=== PATIENT | male | born 1945 | race Caucasian/White ===

== ENCOUNTER 2017-02-01 13:05 | Emergency (ER) | payer OTHER ==
--- NOTE | 2017-02-01 13:17 | PROVIDER DOCUMENTATION ---
HPI-Syncope/Dizziness - General Source: patient, EMS Unable to obtain history due to:: other (Pt is unreliable historian due to his mental condition. He lives in a assisted.) - History of Present Illness-Syncope/Dizzy If witnessed syncope, by whom?: assisted staff Onset/Duration: reports: abrupt, just prior to arrival Timing: reports: resolved prior to arrival Position/Activity at time of episode: reports: standing Symptoms prior to episode: reports: unknown Context: reports: felt faint, almost passed out Loss of Consciousness: no loss of consciousness Location of injury. (If syncope resulted in an injury.): reports: none Current Symptoms: reports: nausea <Maranda Salmeron - Last Filed: 02/01/17 16:17> <Jose Gage - Last Filed: 02/01/17 16:22> - General Chief Complaint: Near Syncope Stated Complaint: NEAR SYNCOPE Time Seen by Provider: 02/01/17 13:05 Allergies/Adverse Reactions: Patient Allergies Allergy/AdvReac Type Severity Reaction Status Date / Time No Known Allergies Allergy Verified 01/18/16 08:05 Home Medications: Home Medication List Medication Instructions Recorded Confirmed Last Taken Type ATORVAstatin [Lipitor] 20 mg PO DAILY 01/18/16 09/25/16 01/18/16 06:00 History Amlodipine Besylate 10 mg PO DAILY 01/18/16 09/25/16 01/18/16 06:00 History Aspirin EC 81 mg PO DAILY 01/18/16 09/25/16 01/18/16 06:00 History Atenolol 50 mg PO DAILY 01/18/16 09/25/16 01/18/16 06:00 History Carbidopa/Levodopa [Carbidopa-Levo 1 each PO Q6H 01/18/16 09/25/16 01/18/16 06: 00 History 25-100 mg Odt] Cholecalciferol (Vitamin D3) 1,000 unit PO DAILY 01/18/16 09/25/16 01/18/16 06: 00 History [Vitamin D] Cyanocobalamin (Vitamin B-12) 1,000 mcg PO DAILY 01/18/16 09/25/16 01/18/16 06: 00 History [Vitamin B-12] Docusate Sodium [Dok] 100 mg PO BID 01/18/16 09/25/16 01/18/16 06:00 History Lacosamide [Vimpat] 150 mg PO BID 01/18/16 09/25/16 01/18/16 06:00 History Memantine HCl [Namenda] 5 mg PO BID 01/18/16 09/25/16 01/18/16 06:00 History Metformin HCl 850 mg PO BID 01/18/16 09/25/16 01/18/16 06:00 History Oxcarbazepine 300 mg PO BID 01/18/16 09/25/16 01/18/16 06:00 History Pantoprazole Sodium 40 mg PO DAILY 01/18/16 09/25/16 01/18/16 06:00 History Quetiapine [Seroquel] 25 mg PO QAM 01/18/16 09/25/16 01/18/16 06:00 History Quetiapine [Seroquel] 200 mg PO BID 01/18/16 09/25/16 01/18/16 06:00 History Spironolactone 25 mg PO DAILY 01/18/16 09/25/16 01/18/16 06:00 History Tamsulosin HCl 0.4 mg PO DAILY 09/25/16 09/25/16 Unknown History Lactulose 30 ml PO DAILY #30 ml 10/03/16 Unknown Rx Levofloxacin [Levaquin] 500 mg PO DAILY #7 tablet 10/03/16 Unknown Rx Polyethylene Glycol 3350 [Miralax] 17 gm PO DAILY #30 powd.pack 10/03/16 Unknown Rx - History of Present Illness-Syncope/Dizzy Nature of Presenting Problem: 72 yo WM is brought to ED by EMS following a near-syncopal episode in the shower at his assisted just prior to arrival. Pt reportedly got into the shower all right, but then slumped over with no LOC. He hit his head on the wall , was caught, and then moved to the toilet. Pt was reportedly hypotensive at that time. Upon arrival to ED, pt's BP was normal. Pt is unreliable historian due to his schizophrenia. He is able to respond to questions and commands, though he does not appropriately answer every question. It is unknown if this is a deviation from pt's baseline. (Maranda Salmeron) Review of Systems - Adult - REVIEW OF SYSTEMS - ADULT ROS:: limited per condition (Pt inconsistently responds to questions regarding pain, tenderness, and other symptoms.) Constitutional: reports: no symptoms reported. denies: chills, fever Eyes: reports: no symptoms reported. denies: decreased vision, blurred vision Ears, Nose, Mouth & Throat: reports: no symptoms reported. denies: ear discharge, sinus problem Cardiovascular: reports: no symptoms reported. denies: chest pain, heart murmur Respiratory: reports: no symptoms reported. denies: cough, wheezing Gastrointestinal: reports: nausea Genitourinary: reports: no symptoms reported. denies: dysuria, discharge Musculoskeletal: reports: no symptoms reported. denies: bone pain, back pain Integumentary: reports: no symptoms reported. denies: hives, itching Neurological: reports: other (near syncope) Psychiatric: reports: no symptoms reported. denies: anxiety, depression Endocrine: reports: no symptoms reported. denies: cold intolerance, heat intolerance Hematologic/Lymphatic: reports: no symptoms reported. denies: blood clots, low blood count Allergic/Immunologic: reports: no symptoms reported. denies: allergic reactions , allergic rhinitis All Other Systems: Reviewed and Negative <Maranda Salmeron - Last Filed: 02/01/17 16:17> Past History - Adult - PAST MEDICAL HISTORY-ADULT Review of Records: reports: Old Records Reviewed, Nursing Assessment Review, Medications Reviewed - IMMUNIZATION STATUS Childhood Immunizations: See Nurse Assessment Flu Vaccine: See Nurse Assessment <Maranda Salmeron - Last Filed: 02/01/17 16:17> Physical Exam-General - PHYSICAL EXAM-ADULT Exam Limited by: Pt is unreliable historian Initial Vital Signs Reviewed: Yes - CONSTITUTIONAL General Appearance: mild distress, slow to respond - HEAD, EARS, NOSE, MOUTH & THROAT HENMT: normocephalic/atraumatic, moist mucous membranes - NECK Neck: non-tender, full range of motion, supple - RESPIRATORY Respiratory: lungs clear, normal breath sounds - CARDIOVASCULAR Cardiovascular: normal peripheral pulses, regular rate, rhythm - GASTROINTESTINAL (ABDOMEN) Abdominal Exam: normal bowel sounds, soft, other (Pt responds to question of tenderness inconsistently, sometimes saying yes, sometimes saying no for the same areas. Pt does not exhibit other signs of tenderness and pain, such as reflexly jumping or pulling away on palpation.) - LYMPHATIC Lymphatic: no adenopathy - MUSCULOSKELETAL Back Exam: normal inspection Extremity: non-tender - SKIN Integumentary: normal color, normal turgor, warm/dry - NEUROLOGIC Neurologic: grossly normal - PSYCHIATRIC Psych/Mental Status: other (oriented x 2. Pt has hx of schizophrenia. he responds to questions, though not always appropriately.) <Maranda Salmeron - Last Filed: 02/01/17 16:17> Progress - EKG 1 Time of EKG reading by physician:: 13:13 EKG Read and Signed by:: Jose Gage EKG Interpretation (*Must complete 3 of following elements*): Normal Rate: 69 Rhythm: sinus [place]: normal QRS: normal [place] Interval: normal ST Wave: normal 2 Time of EKG reading by physician:: 15:49 EKG Read and Signed by:: Jose Gage EKG Interpretation (*Must complete 3 of following elements*): Normal Rate: 76 Rhythm: sinus [place]: normal QRS: normal [place] Interval: normal - XRAY 1 XRAY Study: Chest Impression: Normal XRAY Interpretation: NAD <Maranda Salmeron - Last Filed: 02/01/17 16:17> Departure <Maranda Salmeron - Last Filed: 02/01/17 16:17> - Departure Time of Disposition Order: 16:21 Certified Medical Emergency: Emergent <Jose Gage - Last Filed: 02/01/17 16:22> - Departure DIAGNOSIS: Vasovagal near syncope Disposition: HOME 01 Condition: Stable Additional Instructions: ED Follow Up Instructions: You have been treated by a care provider in the Emergency Department. These instructions are being provided to you so you can have an understanding of how to care for yourself upon discharge. Upon discharge from the Emergency Department, you are responsible for making arrangements for follow-up care by a physician of your choice. Take all prescribed medications as directed. Return to the Emergency Department immediately for any new or worsening symptoms. You may call the Physician Referral phone number at [phone] to obtain a list of Physicians who are taking new patients. Attestation - Scribe Verification/Attestation Scribe:: Maranda Salmeron Acting as Scribe for:: Jose Gage Scribe documention review:: This chart was documented by a scribe and accurately reflects the service the provider performed and the decisions made by the provider. - Physician/ KAREN Attestation Patient care was provided by Advanced Practice Provider:: No <Maranda Salmeron - Last Filed: 02/01/17 16:17> Physician Attestation
[2017-02-01 13:46] LABS: MANUAL DIFF NEEDED? NO
[2017-02-01 13:52] LABS: BASO% 0.5 % (0.0-0.8); EOS# 0.13 X1000 (0.0-0.7); EOS% 1.4 % (0.0-10.0); HEMATOCRIT 40.2 % (42.0-52.0); HEMOGLOBIN 12.7 g/dL (14.0-18.0); IMM GRAN# 0.03 X1000 (0.0-0.04); IMM GRAN% 0.3 % (0.0-0.5); LYMPH# 1.95 X1000 (1.2-3.4); LYMPH% 20.5 % (20.5-51.1); MCH 26.7 PG (27-31); MCHC 31.6 g/dL (33-37); MCV 84.6 FL (81-99); MONO# 1.08 X1000 (0.11-0.59); MONO% 11.4 % (1.7-9.3); MPV 10.9 FL (7.4-10.4); NEUT% 65.9 % (42.2-75.2); PLT 207 X1000 (130-400); RBC 4.75 XMIL (4.7-6.1)
[2017-02-01 14:05] LABS: AGAP 13; ALBUMIN 3.7 g/dL (3.5-5.0); ALKALINE PHOSPHATASE 99 U/L (32-122); BUN 19 mg/dL (8-22); CALCIUM 9.2 mg/dL (8.8-10.2); CHLORIDE 102 mmol/L (98-107); CK PROFILE 40 U/L (24-204); COSMO 285; GOT 13 U/L (10-34); GPT < 5 U/L (10-44); POTASSIUM 4.7 mmol/L (3.5-5.1); SODIUM 139 mmol/L (136-145); TCO2 25 mmol/L (25-35)
--- NOTE | 2017-02-01 15:07 | Diag Imaging Result Document ---
PROCEDURE NAME: CHEST-PORTABLE - 02/01/2017 PORTABLE CHEST: FINDINGS: Compared to 09/30/2016. Poor inspiratory effort. The heart is not enlarged. The vessels are not distended. No pneumonia. No pleural effusions identified. IMPRESSION: Negative chest.
--- NOTE | 2017-02-01 16:01 | EKG Report ---
Test Performed on : 02/01/2017 3:49:47 PM Test Reason : cp Blood Pressure : / mmHG Vent. Rate : 076 BPM Atrial Rate : 076 BPM P-R Int : 178 ms QRS Dur : 088 ms QT Int : 386 ms P-R-T Axes : 043 -19 024 degrees QTc Int : 434 ms Normal sinus rhythm. Normal ECG When compared with ECG of 01-FEB-2017 13:13, (Unconfirmed) No significant change was found Unconfirmed Result
--- NOTE | 2017-02-01 16:03 | EKG Report ---
Test Performed on : 02/01/2017 1:13:32 PM Test Reason : emboli Blood Pressure : / mmHG Vent. Rate : 069 BPM Atrial Rate : 069 BPM P-R Int : 182 ms QRS Dur : 094 ms QT Int : 412 ms P-R-T Axes : 049 -10 012 degrees QTc Int : 441 ms Normal sinus rhythm. Normal ECG When compared with ECG of 28-SEP-2016 05:54, Vent. rate has decreased BY 37 BPM Nonspecific T wave abnormality, improved in Anterolateral leads Unconfirmed Result
[2017-02-01 17:03] VITALS: BP 133/75
== END 2017-02-01 17:03 | disposition home or self-care (01) ==
LOC: P.ED 13:05
DX: R55 Syncope and collapse (principal); R11.0 Nausea; F20.9 Schizophrenia, unspecified; Z79.899 Other long term (current) drug therapy; Z79.82 Long term (current) use of aspirin
CPT/HCPCS: 71010; 80053; 82550; 84484; 85025; 93005; 99284

== ENCOUNTER 2019-01-01 18:59 | Inpatient (IN) ==
[2019-01-01 19:56] LABS: BASO# 0.04 X1000 (0.0-0.2); BASO% 0.5 % (0.0-0.8); EOS% 1.3 % (0.0-10.0); HEMATOCRIT 36.6 % (42.0-52.0); HEMOGLOBIN 12.7 g/dL (14.0-18.0); IMM GRAN# 0.01 X1000 (0.0-0.04); IMM GRAN% 0.1 % (0.0-0.5); LYMPH# 2.83 X1000 (1.2-3.4); LYMPH% 37.6 % (20.5-51.1); MCH 29.3 PG (27-31); MCHC 34.7 g/dL (33-37); MCV 84.3 FL (81-99); MONO# 0.98 X1000 (0.11-0.59); MPV 10.4 FL (7.4-10.4); NEUT# 3.56 X1000 (1.4-6.5); NEUT% 47.5 % (42.2-75.2); PLT 215 X1000 (130-400); RBC 4.34 XMIL (4.7-6.1); WBC 7.52 X1000 (4.8-10.8)
--- NOTE | 2019-01-01 20:11 | Diag Imaging Result Doc PS360 ---
CT HEAD W/O CONTRAST - 01/01/2019 INDICATION: slurred speech/stroke like symptoms COMPARISON: 02/03/2018 FINDINGS: There is stable mild atrophy and periventricular white matter chronic microvascular disease. No intracranial mass or hemorrhage. The skull is intact. The sinuses, mastoids, and middle ears are clear. IMPRESSION: No acute disease or change from prior. This exam was performed using automated exposure control, adjustment of mA or kV according to patient size, and/or use of iterative reconstruction technique Electronically signed by Robles Humphreys 01/01/2019 8:08 PM
--- NOTE | 2019-01-01 20:13 | Diag Imaging Result Doc PS360 ---
CHEST-PORTABLE - 01/01/2019 INDICATION: shortness of breath COMPARISON: 07/29/2018 FINDINGS: The lungs are normally expanded and clear. Heart size and mediastinal contours are normal. No pneumothorax or pleural effusion. IMPRESSION: Negative exam. Electronically signed by Robles Humphreys 01/01/2019 8:11 PM
[2019-01-01 20:14] LABS: INR 0.96; PROTIME 13.3 Seconds (11.0-16.0); PTT 29.3 Seconds (22.3-41.8)
[2019-01-01 20:15] LABS: ESTIMATED GFR > 60
[2019-01-01 20:18] LABS: AGAP 18; ALKALINE PHOSPHATASE 98 U/L (32-122); BUN 19 mg/dL (8-22); CHLORIDE 90 mmol/L (98-107); CK PROFILE 172 U/L (24-204); COSMO 264; CREATININE 0.7 mg/dL (0.7-1.2); GLUCOSE 152 mg/dL (70-104); GOT 20 U/L (10-34); GPT 6 U/L (10-44); MAGNESIUM 1.3 mg/dL (1.5-2.7); POTASSIUM 4.3 mmol/L (3.5-5.1); SODIUM 129 mmol/L (136-145); TCO2 22 mmol/L (25-35); TOTAL PROTEIN 7.2 g/dL (6.3-8.3)
--- NOTE | 2019-01-01 20:40 | EKG Report ---
Test Performed on : 01/01/2019 8:27:58 PM Test Reason : slurred speech Blood Pressure : / mmHG Vent. Rate : 087 BPM Atrial Rate : 087 BPM P-R Int : 192 ms QRS Dur : 138 ms QT Int : 410 ms P-R-T Axes : 044 -62 038 degrees QTc Int : 493 ms Normal sinus rhythm. Right bundle branch block Left anterior fascicular block Bifascicular block Septal infarct , age undetermined Abnormal ECG When compared with ECG of 03-FEB-2018 12:47, T wave inversion now evident in Anterior leads Unconfirmed Result
[2019-01-01 20:59] LABS: INFLUENZA A NEGATIVE (NEGATIVE); INFLUENZA B NEGATIVE (NEGATIVE)
[2019-01-01 21:03] LABS: URINE SOURCE CATH
[2019-01-01 21:08] LABS: BILIRUBIN URINE NEGATIVE (NEGATIVE); BLOOD URINE NEGATIVE (NEGATIVE); CLARITY CLEAR (CLEAR); COLOR YELLOW; KETONE URINE TRACE mg/dL (NEGATIVE); LEUKOCYTES URINE NEGATIVE (NEGATIVE); NITRITE URINE NEGATIVE (NEGATIVE); PROTEIN URINE TRACE mg/dL (NEGATIVE); UROBILINOGEN URINE NORMAL
[2019-01-01 21:13] LABS: URINE BACTERIA 1+ /HFP; URINE CAST NONE SEEN /LPF; URINE CRYSTAL NONE SEEN /HPF; URINE EPITHELIAL CELLS <10 /HPF (<10); URINE RBC <10 /HPF (<10); URINE WBC <10 /HPF (<10); URINE YEAST NONE SEEN /HPF
--- NOTE | 2019-01-01 22:00 | PROVIDER DOCUMENTATION ---
This chart was entered by Jenny Malcolm Scribe, acting as scribe for Kilo Osorio MD. HPI-Neurological Disorder - General Chief Complaint: Stroke-Like Symptoms Stated Complaint: STROKE LIKE SX Time Seen by Provider: 01/01/19 19:09 Source: patient, other (staff members) Allergies/Adverse Reactions: Patient Allergies Allergy/AdvReac Type Severity Reaction Status Date / Time No Known Allergies Allergy Verified 01/18/16 08:05 Home Medications: Home Medication List Medication Instructions Recorded Confirmed Last Taken Type ATORVAstatin [Lipitor] 20 mg PO DAILY 01/18/16 01/01/19 01/18/16 06:00 History Amlodipine Besylate 10 mg PO DAILY 01/18/16 01/01/19 01/18/16 06:00 History Aspirin EC 81 mg PO DAILY 01/18/16 01/01/19 01/18/16 06:00 History Atenolol 50 mg PO DAILY 01/18/16 01/01/19 01/18/16 06:00 History Carbidopa/Levodopa [Carbidopa-Levo 1 each PO Q6H 01/18/16 01/01/19 01/18/16 06: 00 History 25-100 mg Odt] Cholecalciferol (Vitamin D3) 1,000 unit PO DAILY 01/18/16 07/29/18 01/18/16 06: 00 History [Vitamin D] Docusate Sodium [Dok] 100 mg PO BID 01/18/16 01/01/19 01/18/16 06:00 History Lacosamide [Vimpat] 150 mg PO BID 01/18/16 01/01/19 01/18/16 06:00 History Memantine HCl [Namenda] 5 mg PO BID 01/18/16 01/01/19 01/18/16 06:00 History Metformin HCl 1,000 mg PO BID 01/18/16 01/01/19 01/18/16 06:00 History Oxcarbazepine 300 mg PO BID 01/18/16 01/01/19 01/18/16 06:00 History Pantoprazole Sodium 40 mg PO DAILY 01/18/16 01/01/19 01/18/16 06:00 History Quetiapine [Seroquel] 25 mg PO QAM 01/18/16 01/01/1901/18/16 06:00 History Quetiapine [Seroquel] 200 mg PO BID 01/18/16 01/01/19 01/18/16 06:00 History Spironolactone 25 mg PO DAILY 01/18/16 01/01/19 01/18/16 06:00 History Tamsulosin HCl 0.4 mg PO DAILY 09/25/16 01/01/19 Unknown History Lactulose 30 ml PO DAILY #30 ml 10/03/16 01/01/19 Unknown Rx Levofloxacin [Levaquin] 500 mg PO DAILY #5 tab 02/03/18 07/29/18 Unknown Rx Cyanocobalamin (Vitamin B-12) 1,000 mcg PO DAILY 07/29/18 01/01/19 Unknown History [Vitamin B12] Donepezil [Aricept] 5 mg PO QHS 07/29/18 01/01/19 Unknown History Ondansetron [Zofran] 4 mg PO Q6H PRN PRN #14 tab 07/29/18 Unknown Rx - History of Present Illness-Neuro Nature of Presenting Problem: pt is a 73 yr old male presenting with half-way staff, 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 pt denies any complaints; staff does report pts high blood pressure and elevated blood glucose Onset/Duration: reports: 1-3 hours ago Timing: reports: improving Context: reports: impaired speech (slurred, resolved now). denies: facial droop Approximate time patient was last seen normal?: 17:45 Character of Altered Mental Status: reports: N/A Any recent trauma/injury?: reports: none Character of Deficits: reports: impaired speech (slurred) New weakness or altered sensation location:: reports: none Cognitive Baseline: alert, oriented x3 Associated Symptoms: reports: slurred speech (per staff). denies: headache, confusion, trouble walking Similar Symptoms Previously?: No Recently seen or treated by another doctor?: No Review of Systems - Adult - REVIEW OF SYSTEMS - ADULT Constitutional: denies: chills, fever Eyes: reports: no symptoms reported Ears, Nose, Mouth & Throat: reports: no symptoms reported Cardiovascular: denies: chest pain, palpitations, syncope Respiratory: reports: no symptoms reported Gastrointestinal: denies: diarrhea, vomiting Genitourinary: reports: no symptoms reported Musculoskeletal: reports: no symptoms reported Integumentary: reports: no symptoms reported Neurological: reports: slurred speech (per staff). denies: dizziness/vertigo, headache/migraines Psychiatric: reports: no symptoms reported Endocrine: reports: no symptoms reported Hematologic/Lymphatic: reports: no symptoms reported Allergic/Immunologic: reports: no symptoms reported All Other Systems: Reviewed and Negative Past History - Adult - PAST MEDICAL HISTORY-ADULT Review of Records: reports: Old Records Reviewed, Nursing Assessment Review, Medications Reviewed, Social history reviewed & non-contributory. Major Childhood Illnesses: reports: denies history Cardiovascular: reports: HTN Respiratory: reports: denies history Gastrointestinal: reports: denies history Genitourinary: reports: denies history Musculoskeletal: reports: denies history Neurological: reports: cognitive dysfunction (mild intellectual disability), Parkinson's, Seizures/Epilepsy Psychiatric: reports: schizophrenia Endocrine/Immune: reports: Diabetes Other Conditions: reports: denies history - PRIOR SURGERIES/PROCEDURES Surgical/Procedure History: reports: reviewed, not pertinent - IMMUNIZATION STATUS Childhood Immunizations: See Nurse Assessment Flu Vaccine: See Nurse Assessment - FAMILY HISTORY Family History: reviewed, not pertinent - SOCIAL HISTORY Smoking: denies Substance Use: denies Living Situation: group (half-way) Physical Exam- Neurological - Physical Exam-Neuro Initial Vital Signs Reviewed: Yes General Appearance: alert, no apparent distress, thin, other (frail) Eye Exam: bilateral eye: normal inspection, PERRL HENMT: normocephalic/atraumatic, moist mucous membranes, normal ENT inspection Head Injury: no evidence of injury Neck: non-tender, full range of motion, supple, normal inspection Respiratory: chest non-tender, lungs clear, normal breath sounds Cardiovascular: normal peripheral pulses, regular rate, rhythm, no edema Abdominal Exam: normal bowel sounds, non tender, soft Lymphatic: no adenopathy Extremity: normal range of motion, non-tender, normal gait, normal inspection seafood harvester Exam: normal hearing, normal speech, PERRL Motor/Sensory: no motor deficit, no sensory deficit Neurologic: grossly normal, no motor/sensory deficits Integumentary: normal color, normal turgor, warm/dry Psych/Mental Status: normal thought content, oriented x 3 - Glascow Coma Scale Best Eye Response: (4) open spontaneously Best Verbal Response: (5) oriented Best Motor Response: (6) obeys commands Total Glascow Score: 15 Progress - PLAN OF CARE/RESULTS Progress/Plan/Lab Results: Vital Signs - 8 hr 01/01/19 19:00 01/01/19 20:00 Temperature 98 F Pulse Rate 90 86 Respiratory Rate 18 22 Blood Pressure 163/85 166/86 O2 Sat by Pulse Oximetry 99 97 Laboratory Results - last 24 hr 01/01/19 01/01/19 01/01/19 19:35 19:35 19:35 WBC 7.52 RBC 4.34 L Hgb 12.7 L Hct 36.6 L MCV 84.3 MCH 29.3 MCHC 34.7 RDW Std Deviation 13.0 Plt Count 215 MPV 10.4 Immature Gran % (Auto) 0.1 Neut % (Auto) 47.5 Lymph % (Auto) 37.6 [place] % (Auto) 13.0 H Eos % (Auto) 1.3 Baso % (Auto) 0.5 Immature Gran # (Auto) 0.01 Neut # (Auto) 3.56 Lymph # (Auto) 2.83 [place] # (Auto) 0.98 H Eos # (Auto) 0.10 Baso # (Auto) 0.04 PT INR PTT (Actin FS) Sodium 129 L Potassium 4.3 Chloride 90 L Carbon Dioxide 22 L Anion Gap 18 BUN 19 Creatinine 0.7 Estimated GFR/1.73 m2 > 60 BUN/Creatinine Ratio 27 Glucose 152 H Calculated Osmolality 264 Calcium 9.0 Magnesium 1.3 L Total Bilirubin 0.20 AST 20 ALT 6 L Alkaline Phosphatase 98 Creatine Kinase 172 Troponin T Rzx-I-Rbflwrvlqsc Pept 380 H Total Protein 7.2 Albumin 4.0 Globulin 3.0 Albumin/Globulin Ratio 1.0 Urine Source Urine Color Urine Clarity Urine pH Ur Specific [place] Urine Protein Urine Ketones Urine Blood Urine Nitrite Urine Bilirubin Urine Urobilinogen Urine Microscopic RBC Urine WBC Urine Microscopic WBC Ur Epithelial Cells Urine Crystals Urine Bacteria Urine Casts Urine Yeast Urine Glucose Influenza A (Rapid) Influenza B (Rapid) 01/01/19 01/01/19 01/01/19 19:35 19:35 20:20 WBC RBC Hgb Hct MCV MCH MCHC RDW Std Deviation Plt Count MPV Immature Gran % (Auto) Neut % (Auto) Lymph % (Auto) [place] % (Auto) Eos % (Auto) Baso % (Auto) Immature Gran # (Auto) Neut # (Auto) Lymph # (Auto) [place] # (Auto) Eos # (Auto) Baso # (Auto) PT 13.3 INR 0.96 PTT (Actin FS) 29.3 Sodium Potassium Chloride Carbon Dioxide Anion Gap BUN Creatinine Estimated GFR/1.73 m2 BUN/Creatinine Ratio Glucose Calculated Osmolality Calcium Magnesium Total Bilirubin AST ALT Alkaline Phosphatase Creatine Kinase Troponin T < 0.010 Cke-D-Eabaqmcxuoo Pept Total Protein Albumin Globulin Albumin/Globulin Ratio Urine Source Urine Color Urine Clarity Urine pH Ur Specific [place] Urine Protein Urine Ketones Urine Blood Urine Nitrite Urine Bilirubin Urine Urobilinogen Urine Microscopic RBC Urine WBC Urine Microscopic WBC Ur Epithelial Cells Urine Crystals Urine Bacteria Urine Casts Urine Yeast Urine Glucose Influenza A (Rapid) NEGATIVE Influenza B (Rapid) NEGATIVE 01/01/19 20:50 WBC RBC Hgb Hct MCV MCH MCHC RDW Std Deviation Plt Count MPV Immature Gran % (Auto) Neut % (Auto) Lymph % (Auto) [place] % (Auto) Eos % (Auto) Baso % (Auto) Immature Gran # (Auto) Neut # (Auto) Lymph # (Auto) [place] # (Auto) Eos # (Auto) Baso # (Auto) PT INR PTT (Actin FS) Sodium Potassium Chloride Carbon Dioxide Anion Gap BUN Creatinine Estimated GFR/1.73 m2 BUN/Creatinine Ratio Glucose Calculated Osmolality Calcium Magnesium Total Bilirubin AST ALT Alkaline Phosphatase Creatine Kinase Troponin T Pwj-D-Hfvfgzmxluq Pept Total Protein Albumin Globulin Albumin/Globulin Ratio Urine Source CATH Urine Color YELLOW Urine Clarity CLEAR Urine pH 5.0 Ur Specific [place] 1.010 Urine Protein TRACE A Urine Ketones TRACE Urine Blood NEGATIVE Urine Nitrite NEGATIVE Urine Bilirubin NEGATIVE Urine Urobilinogen NORMAL Urine Microscopic RBC <10 Urine WBC NEGATIVE Urine Microscopic WBC <10 Ur Epithelial Cells <10 Urine Crystals NONE SEEN Urine Bacteria 1+ Urine Casts NONE SEEN Urine Yeast NONE SEEN Urine Glucose TRACE(50 mg/dL) A Influenza A (Rapid) Influenza B (Rapid) Orders Category Date Time Status Straight Catheterization ORDERED Care 01/01/19 20:52 Active CHEST-PORTABLE [RAD] Stat Exams 01/01/19 19:[address] HEAD W/O CONTRAST [CT] Stat Exams 01/01/19 19:13 Completed CBC WITH ELECTRONIC DIFF [HEME] Stat Lab 01/01/19 19:35 Completed CK PROFILE [SP CHEM] Stat Lab 01/01/19 19:35 Completed COMPREHENSIVE METABOLIC PANEL [CHEM] Stat Lab 01/01/19 19:[address] Stat Lab 01/01/19 20:20 Completed MAGNESIUM [CHEM] Stat Lab 01/01/19 19:35 Completed PRO B-NATRIURETIC PEPTIDE Stat Lab 01/01/19 19:35 Completed PT [PROTIME WITH INR] [COAG] Stat Lab 01/01/19 19:35 Completed PTT [COAG] Stat Lab 01/01/19 19:35 Completed TROPONIN T Stat Lab 01/01/19 19:[address] [URINALYSIS] Stat Lab 01/01/19 20:50 Completed URINE MICROSCOPIC [URINALYSIS] Stat Lab 01/01/19 20:50 Completed EKG [EKG] Stat Ther 01/01/19 19:29 Draft Result Diagrams: 01/01/19 19:35 01/01/19 19:35 - REASSESSMENT Reassessment #1 Time Reassessed: 21:51 Status: worsening (no dysarthria but patient is currently somewhat confused and disoriented now; caregiver is not comfortable for patient to return back to half-way) - EKG 1 Time of EKG reading by physician:: 20:27 EKG Read and Signed by:: Kilo Osorio EKG Interpretation (*Must complete 3 of following elements*): Abnormal (right bundle branch block, left anterior fasicular blockbifascicular block, septal infarct-age undtermined) Rate: 87 Rhythm: nsr Holliday: normal QRS: RBB, other (bifasicular block, left anterior fasicular block) CO Interval: normal ST Wave: normal - XRAY 1 XRAY Study: Chest Impression: Normal ( CHEST-PORTABLE - 01/01/2019 INDICATION: shortness of breath COMPARISON: 07/29/2018 FINDINGS: The lungs are normally expanded and clear. Heart size and mediastinal contours are normal. No pneumothorax or pleural effusion. IMPRESSION: Negative exam. Electronically signed by Robles Humphreys 01/01/2019 8:11 PM 01/01/192010 Interpreting Physician: Robles Humphreys MD Dictated Date/Time: 01/01/192010 cc: Kilo Osorio MD; None, PCP) Comparison with other Films: no changes (07/29/18) - CT/MRI 1 CT Study: Head Impression: Abnormal ( Signed CT HEAD W/O CONTRAST - 01/01/2019 INDICATION: slurred speech/stroke like symptoms COMPARISON: 02/03/2018 FINDINGS: There is stable mild atrophy and periventricular white matter chronic microvascular disease. No intracranial mass or hemorrhage. The skull is intact. The sinuses, mastoids, and middle ears are clear. IMPRESSION: No acute disease or change from prior. This exam was performed using automated exposure control, adjustment of mA or kV according to patient size, and/or use of iterative reconstruction technique Electronically signed by Robles Humphreys 01/01/2019 8:08 PM 01/01/192007 Interpreting Physician: Robles Humphreys MD Dictated Date/Time: 01/01/192005 cc: Kilo Osorio MD; None,PCP) Comparison with other Films: no changes (02/03/18) - CONSULTS/PCP/HOSPITALIST Notification #1 *Consult/PCP/Hospitalist*: Dr. Gasca Time Discussed: 21:58 Consult Disposition: Admit Departure - Departure Date of Disposition Decision: 01/01/19 Time of Disposition Decision: 21:52 DIAGNOSIS: Dysarthria, Confusion, Hyponatremia Disposition: ADMITTED INPATIENT 09 Certified Medical Emergency: Emergent Condition: Serious - Critical Care Note This patient required my direct & personal management of CC.: No Attestation - Physician/ KAREN Attestation The physician spent face to face time with patient:: Yes Advanced Practice Provider documentation review:: Supervising physician onsite and consulted in the evaluation and care of this patient. The physician did have a face to face encounter with the patient. - NIH Stroke Scale NIH Type: Initial Evaluation Level of Consciousness: 0-Alert LOC Questions (ask month and age): 0-Answers Both Correctly LOC Commands (ask to open & close eyes;make a fist, let go): 0-Obeys Both Correctly Best Gaze (horizontal eye movement): 0-Normal Visual (use finger movement, counting or visual threat): 0-No Visual Loss Facial Palsy (show teeth or raise eyebrows & close eyes tght: 0-Symmetrical Movement Motor Function-left arm: 0-Normal Motor Function-right arm: 0-Normal Motor Function-left le-Normal Motor Function-right le-Normal Limb Ataxia(sbqeep-cvif-ksjlko, or heel to moreno): 0-No Ataxia Sensory(pin prick to face,arms,trunk,legs-compare side/side): 0-No Ataxia Best Language(name item/read sentence.Ex-Down to Earth): 0-No Aphasia (patient unable to read; eyeglasses not available for patient) Dysarthria(Pt read words or say words Ex.Mama,Tip-Top,Thanks: 0-Normal Articulation Extinction and Inattention: 0-Normal NIH Total Score: 0 This chart was documented by the indicated scribe, (Jenny Malcolm, Scribe) and accurately reflects the services I performed and decisions made by , Kilo Osorio MD, as attested by the provider's signature.
[2019-01-01] MEDS ORDERED: NS 1,000 ML IV ONE (22:29)
[2019-01-01] MEDS ORDERED: TYLENOL PO PRN (22:29)
[2019-01-01] MEDS ORDERED: ZOFRAN IV PRN (22:29)
[2019-01-02] MEDS ORDERED: FLU VACCINE IM ONE (09:00)
[2019-01-02] MEDS ORDERED: ZOFRAN ODT PO PRN (15:43)
[2019-01-02 16:19] LABS: AGAP 10; BUN 13 mg/dL (8-22); CHLORIDE 92 mmol/L (98-107); COSMO 266; CREATININE 0.7 mg/dL (0.7-1.2); ESTIMATED GFR > 60; GLUCOSE 164 mg/dL (70-104); MAGNESIUM 1.4 mg/dL (1.5-2.7); POTASSIUM 4.2 mmol/L (3.5-5.1); SODIUM 131 mmol/L (136-145); TCO2 29 mmol/L (25-35)
--- NOTE | 2019-01-02 17:24 | HISTORY AND PHYSICAL ---
CHIEF COMPLAINT: He has slurred speech. HISTORY OF PRESENT ILLNESS: This is a 73-year-old gentleman who presented to the emergency room from his [facility] after having a sudden onset of slurred speech. They denied any other deficits. Mr. Mohan does have a history of intellectual impairment secondary to Parkinson's, autism, and schizophrenia, although the personnel at the [facility] state that he is now back to his baseline. CT of the head revealed no acute disease or change. He is being admitted for further evaluation and treatment. PAST MEDICAL HISTORY: Diabetes mellitus, hypertension, seizure disorder, Parkinson's, autism, schizophrenia, frequent UTIs. PAST SURGICAL HISTORY: Unknown. SOCIAL HISTORY: retirement denies any alcohol, tobacco, or illicit drug use. ALLERGIES: No known drug allergies. HOME MEDICATIONS: A list will be obtained from the patient's [facility] records, and once reviewed, we will restart as appropriate. REVIEW OF SYSTEMS: Review of systems is discussed with the sitter, who states that the patient has reportedly had no complaints. This is unable to obtain from the patient. PHYSICAL EXAMINATION: GENERAL: This is a 73-year-old gentleman, who is sitting up in the bed on the medical/surgical floor in no distress. VITAL SIGNS: Blood pressure is 155/90 with a heart rate of 88, respirations are 20, temperature is 97.3 degrees oral with room air saturations 99 to 100. HEENT: Head is normocephalic, atraumatic. Mucous membranes are moist. NECK: Supple with trachea midline. CARDIOVASCULAR: Regular rate and rhythm. S1 and S2 appreciated. He has no lower extremity edema with peripheral pulses palpable x4 extremities. PULMONARY: Breath sounds are clear with no increased work of breathing noted. Chest rises and falls symmetrically. Chest wall is nontender to palpation GASTROINTESTINAL: Abdomen is soft, nontender, with bowel sounds in all 4 quadrants. SKIN: Warm and dry. NEUROLOGIC: The patient is alert, he is oriented to his age, his birthday. He knows the sitter. He can follow simple commands. He has no facial droop. Forehead is spared. He has no tongue or uvular deviation. Equal nasal flaring. He moves extremities to command DIAGNOSTIC STUDIES: WBC is 7.5 with hemoglobin 12.7, hematocrit 36.6, platelets of 215,000. Sodium is 129, potassium 4.3, BUN is 19, creatinine is 0.7 with a glucose of 152. Magnesium is 1.3. Urinalysis is essentially negative. Influenza A and B are negative. Urine culture is pending. Chest x-ray revealed a negative exam. CT of the head revealed no acute disease, stable mild atrophy ,and periventricular white matter chronic microvascular disease. No intracranial mass or hemorrhage. The skull is intact. ASSESSMENT AND PLAN: 1. Hyponatremia. 2. Hypomagnesemia. 3. Slurred speech, which has resolved. 4. Parkinson's. 5. Hypertension. 6. Diabetes mellitus. 7. Autism. 8. Schizophrenia. PLAN: The patient has been admitted to the medical/surgical floor and placed on telemetry which will continue. We will continue neurological checks. We will repeat a CBC and CMP in the morning. We will recheck a BMP, as well as magnesium and trend and replete as appropriate. He will be placed on patterned blood glucose with sliding scale insulin. We will identify his home medications and continue these as appropriate. Further treatments pending hospital course. Dictated by NACHO Covington for Marques Gasca MD This chart was documented by, NACHO Covington and accurately reflects the services performed, treatment plan and medical decisions as attested by the providers signature Marques Gasca MD. cc: NACHO Covington MD
[2019-01-02] MEDS: SINEMET 25/100 PO SCH ×2 (17:27→21:19)
[2019-01-02] MEDS: HUMALOG (PARKWAY) SUBQ SCH ×2 (17:27→20:57)
[2019-01-02] MEDS: GLUCOPHAGE PO SCH (17:27)
--- NOTE | 2019-01-02 19:38 | HISTORY AND PHYSICAL ---
ADDENDUM: Patient seen and examined by myself, full note dictated and discussed with nurse practitioner. Patient presented to the ER initially with slurred speech. The caregiver notes that seems to be back to normal. We will observe patient today and if improved can discharge later this evening or certainly by tomorrow. Please see full note. cc: Marques Gasca MD
[2019-01-02] MEDS: COLACE PO SCH (20:19)
[2019-01-02] MEDS: NAMENDA PO SCH (20:19)
[2019-01-02] MEDS: VIMPAT PO SCH (20:19)
[2019-01-02] MEDS: ARICEPT PO SCH (20:19)
[2019-01-02] MEDS: TRILEPTAL PO SCH (20:19)
[2019-01-02] MEDS: SEROQUEL PO SCH (20:19)
[2019-01-02] MEDS: LIPITOR PO SCH (20:19)
[2019-01-03] MEDS: SINEMET 25/100 PO SCH ×4 (03:12→21:48)
[2019-01-03 06:09] LABS: HEMATOCRIT 35.7 % (42.0-52.0); HEMOGLOBIN 12.1 g/dL (14.0-18.0); MCH 28.7 PG (27-31); MCHC 33.9 g/dL (33-37); MCV 84.6 FL (81-99); MPV 10.5 FL (7.4-10.4); RBC 4.22 XMIL (4.7-6.1); RDW 13.1 % (11.5-14.5); WBC 10.34 X1000 (4.8-10.8)
[2019-01-03] MEDS: HUMALOG (PARKWAY) SUBQ SCH ×4 (06:18→20:37)
[2019-01-03] MEDS: PROTONIX PO SCH (06:24)
[2019-01-03 06:34] LABS: AGAP 9; ALBUMIN 3.3 g/dL (3.5-5.0); ALKALINE PHOSPHATASE 76 U/L (32-122); BUN 15 mg/dL (8-22); CALCIUM 8.7 mg/dL (8.8-10.2); CHLORIDE 96 mmol/L (98-107); COSMO 267; CREATININE 0.7 mg/dL (0.7-1.2); ESTIMATED GFR > 60; GLUCOSE 86 mg/dL (70-104); GOT 20 U/L (10-34); GPT < 5 U/L (10-44); MAGNESIUM 1.4 mg/dL (1.5-2.7); SODIUM 133 mmol/L (136-145); TCO2 28 mmol/L (25-35); TOTAL PROTEIN 6.7 g/dL (6.3-8.3)
[2019-01-03] MEDS ORDERED: LEVAQUIN PO SCH (09:00)
[2019-01-03] MEDS: VITAMIN B-12 PO SCH (09:12)
[2019-01-03] MEDS: SEROQUEL PO SCH ×3 (09:12→20:35)
[2019-01-03] MEDS: GLUCOPHAGE PO SCH ×2 (09:12→17:23)
[2019-01-03] MEDS: TRILEPTAL PO SCH ×2 (09:12→20:36)
[2019-01-03] MEDS: VITAMIN D PO SCH (09:12)
[2019-01-03] MEDS: TENORMIN PO SCH (09:12)
[2019-01-03] MEDS: ASPIRIN EC PO SCH (09:13)
[2019-01-03] MEDS: NAMENDA PO SCH ×2 (09:13→20:36)
[2019-01-03] MEDS: FLOMAX PO SCH (09:13)
[2019-01-03] MEDS: NORVASC PO SCH (09:13)
[2019-01-03] MEDS: COLACE PO SCH ×2 (09:13→20:35)
[2019-01-03] MEDS: VIMPAT PO SCH ×2 (10:12→20:36)
[2019-01-03] MEDS: LACTULOSE PO SCH (10:12)
[2019-01-03] MEDS ORDERED: MAGNESIUM SULFATE 2 GM/S.W.I. 2 GM/50 ML IVPB IV ONE (13:47)
--- NOTE | 2019-01-03 14:27 | PROGRESS NOTE ---
DATE: 01/03/2019 SUBJECTIVE: Patient has no major complaints. OBJECTIVE: Blood pressure 136/66, heart rate 72, respiratory rate 18, temperature 97.3 degrees, 99% on room air.Cardiovascular: Regular rate and rhythm. Pulmonary: Bilateral breath sounds. Clear to auscultation. GI: Soft, nontender, nondistended. Bowel sounds are positive. LABORATORY DATA: White count 10, hemoglobin and hematocrit 12 and 35, platelets 226,000 sodium is 133, mag is 1.4. PROBLEM LIST: 1. Altered mentation with dysarthria that seems to have improved from. What I understand, I do not have documentation he had a questionable seizure episode prior to discharge and was kept inpatient. The patient has seizures or at least is on Vimpat so it looks like he is also on Levaquin which we probably should stop that not quite sure why he is on Levaquin. In any case patient will be evaluated. I will attempt to get an EEG, MRI today just to rule out possible stroke although he is asymptomatic, I am not sure what his baseline level of functioning is so we are going to monitor him. 2. Parkinsonism. He is on Sinemet. We will continue his regular medications and follow. 3. Hypertension apparently stable. 4. Disposition pending his clinical status. He had been on Levaquin which I am not sure if that was for possible infection but I am going to stop it just because of his seizure history. He is not on Levaquin now. His urine was fairly clear. His chest x-ray is clear so I am just going to stop it. Disposition pending his clinical status. Will continue to follow closely. cc: Michael Kaplan MD
[2019-01-03] MEDS: LIPITOR PO SCH (20:35)
[2019-01-03] MEDS: ARICEPT PO SCH (20:36)
[2019-01-04] MEDS: SINEMET 25/100 PO SCH ×3 (03:12→17:19)
[2019-01-04] MEDS: PROTONIX PO SCH (06:18)
[2019-01-04 06:30] LABS: BASO# 0.04 X1000 (0.0-0.2); BASO% 0.4 % (0.0-0.8); EOS# 0.06 X1000 (0.0-0.7); EOS% 0.7 % (0.0-10.0); HEMATOCRIT 35.2 % (42.0-52.0); IMM GRAN# 0.01 X1000 (0.0-0.04); IMM GRAN% 0.1 % (0.0-0.5); LYMPH# 2.88 X1000 (1.2-3.4); LYMPH% 32.2 % (20.5-51.1); MCHC 34.1 g/dL (33-37); MONO# 0.95 X1000 (0.11-0.59); MONO% 10.6 % (1.7-9.3); MPV 10.9 FL (7.4-10.4); NEUT# 5.01 X1000 (1.4-6.5); PLT 202 X1000 (130-400); RBC 4.14 XMIL (4.7-6.1); RDW 13.1 % (11.5-14.5); WBC 8.95 X1000 (4.8-10.8)
[2019-01-04] MEDS: HUMALOG (PARKWAY) SUBQ SCH ×3 (06:35→17:18)
[2019-01-04 06:42] LABS: AGAP 11; BUN 16 mg/dL (8-22); CALCIUM 8.7 mg/dL (8.8-10.2); CHLORIDE 97 mmol/L (98-107); COSMO 271; CREATININE 0.8 mg/dL (0.7-1.2); ESTIMATED GFR > 60; GLUCOSE 85 mg/dL (70-104); POTASSIUM 4.5 mmol/L (3.5-5.1); SODIUM 135 mmol/L (136-145); TCO2 28 mmol/L (25-35)
[2019-01-04] MEDS: TRILEPTAL PO SCH (09:01)
[2019-01-04] MEDS: LACTULOSE PO SCH (09:01)
[2019-01-04] MEDS: VIMPAT PO SCH (09:01)
[2019-01-04] MEDS: NAMENDA PO SCH (09:01)
[2019-01-04] MEDS: VITAMIN D PO SCH (09:01)
[2019-01-04] MEDS: SEROQUEL PO SCH ×2 (09:01)
[2019-01-04] MEDS: ASPIRIN EC PO SCH (09:01)
[2019-01-04] MEDS: FLOMAX PO SCH (09:01)
[2019-01-04] MEDS: GLUCOPHAGE PO SCH ×2 (09:01→17:19)
[2019-01-04] MEDS: NORVASC PO SCH (09:01)
[2019-01-04] MEDS: TENORMIN PO SCH (09:01)
[2019-01-04] MEDS: VITAMIN B-12 PO SCH (09:07)
[2019-01-04] MEDS: COLACE PO SCH (09:08)
--- NOTE | 2019-01-04 11:42 | EEG REPORT ---
DATE: 01/03/2019 REFERRING PHYSICIAN: Dr. Kaplan. DIRECTOR WORK: Ilsa Gonsales. BACKGROUND INFORMATION/TECHNIQUE: This is a digitally recorded EEG with video. HISTORY: This 73-year-old male patient presented to the ER from [facility] with sudden-onset slurred speech which was transient. The patient denied other deficits. He has a history of Parkinson's, autism, and schizophrenia. Also diabetes, seizure disorder, and frequent UTIs. EEG is ordered to detect evidence of seizures. MEDICATIONS: Include Levaquin, Seroquel, Trileptal, Vimpat. EEG FINDINGS: A posterior dominant alpha rhythm is not seen. At maximal alertness, the background consists of mixed alpha and beta range frequencies. No definite persistent focal slowing. No epileptiform discharges. No seizures. Hyperventilation was not performed. Photic stimulation did not alter the record. The patient is drowsy and asleep for much of the record. Stage II sleep is seen with qualitatively normal sleep architecture. EKG demonstrates regular R-R intervals. IMPRESSION AND CLINICAL CORRELATION: Normal routine EEG in the awake and mostly drowsy or sleep states. Of note, a normal EEG does not rule out epilepsy. cc: MD Michael Zhang MD MTDD
--- NOTE | 2019-01-04 11:44 | Diag Imaging Result Doc PS360 ---
EXAM: CT HEAD W/O CONTRAST 01/04/2019 HISTORY: encephalopathy TECHNIQUE: This exam was performed using automated exposure control, adjustment of mA or kV according to patient size, and/or use of iterative reconstruction technique. COMMENT: There is no evidence of mass effect, bleed, or abnormal extra-axial fluid collection. Compared to 01/01/2019 the appearance the brain has not changed significantly. The paranasal sinuses are clear. The calvarium is intact. IMPRESSION: No evidence of acute intracranial disease. Electronically signed by Michele Ackerman 01/04/2019 11:42 AM
[2019-01-04 12:31] VITALS: BP 119/65
--- NOTE | 2019-01-04 15:11 | DISCHARGE SUMMARY ---
ADMISSION DATE: 01/01/2019 DISCHARGE DATE: 01/04/2019 SUBJECTIVE: The patient has no major complaints. DISCHARGE DIAGNOSES: 1. Hyponatremia. 2. Hypomagnesemia. 3. Dysarthria. 4. Parkinsonism. 5. Diabetes. BRIEF HOSPITAL COURSE: Briefly, the patient came in with slurred speech. He is a care home patient. He has parkinsonism, autism, schizophrenia. He came in for evaluation. He had some significant electrolyte abnormalities that may have contributed to his state. Sodium was 129, mag was 1.3. The rest of his workup was negative. I think Dr. Gasca had been planning to discharge him the following day; however, he developed a questionable seizure. He was observed for another 24 hours. We attempted to get an MRI, but he was too kyphotic and we could not get it. EEG was done which showed a normal EEG in awake and mostly drowsy or sleep states. The patient was otherwise stable. He was on Levaquin, which we discontinued. He had already been on Vimpat. There was no clear infection, so I did not keep him on any antibiotics. In any case, he was felt stable for discharge on the . I believe he is at his baseline to go back to the care home. DISCHARGE MEDICATIONS: Aricept 5 at bedtime, Sinemet 1 q.6 the 25/250, amlodipine 10, aspirin 81, atenolol 50, Lipitor, vitamin D3 1000 units daily, vitamin B12 1000 mcg daily, docusate 100 b.i.d., Vimpat 150 b.i.d., lactulose 30 daily, Namenda 5 b.i.d., oxcarbazepine 300 b.i.d., Protonix 40 daily, MiraLAX 17 daily, Seroquel 200 b.i.d. with 25 extra in the morning, spironolactone 25 daily, Flomax 0.4 daily. PLAN: The patient was discharged home. Recommend follow up with his PCP who is not clearly listed and then follow up with Neurology to see about adjusting his seizure meds , although it is not clear he had another seizure. He has not had any other episodes since he has been here. We will discharge him back to the care home in current condition. cc: MD FAINA Sams
--- NOTE | 2019-01-05 12:09 | DISCHARGE SUMMARY ---
ADMISSION DATE: 01/01/2019 DISCHARGE DATE: 01/04/2019 PRIMARY CARE PHYSICIAN: None. ADMISSION DIAGNOSES: 1. Hyponatremia. 2. Hypomagnesemia. 3. Slurred speech that had resolved. 4. Parkinson's. 5. Hypertension. 6. Diabetes. 7. Autism. 8. Schizophrenia. DISCHARGE DIAGNOSIS: Are all the same. SUMMARY OF FINDINGS: This is a 73-year-old male, who resides at a local [facility], came in for evaluation. His sodium was noted to be low at 129 with a magnesium of 1.3. He was supplemented with magnesium, given IV fluids. He had a questionable seizure while here at the hospital. We attempted to get an MRI, but he was too kyphotic and we could not get that. His EEG was normal, awake, and mostly drowsy or sleep states and otherwise stable. He did not have a clear source of infection, so we stopped any antibiotics; and it was felt that he could safely be discharged back to the [facility]. DISCHARGE MEDICATIONS: Aricept 5 mg p.o. at bedtime, Sinemet 25/250 one p.o. q.6 hours, amlodipine 10 mg p.o. daily, aspirin 81 mg p.o. daily, atenolol 50, Lipitor, vitamin D3 1000 units daily, vitamin B12 1000 mcg daily, Colace b.i.d., Vimpat 150 mg p.o. b.i.d., lactulose 30 mL p.o. daily, Namenda 5 mg p.o. b.i.d., oxcarbazepine 300 mg p.o. b.i.d., Protonix 40 mg daily, MiraLAX 17 g p.o. daily, Seroquel 200 mg p.o. b.i.d. with an extra 25 in the morning, spironolactone 25 mg daily, and Flomax 0.4 mg p.o. daily. FOLLOWUP: He will need to follow up with his primary care physician and follow up with Neurology. TIME SPENT: 35 minute discharge. Dictated by NACHO Anna for Michael Kaplan MD cc: NACHO Anna MD
== END 2019-01-04 20:30 | disposition home or self-care (01) | DRG 641 ==
LOC: P.ED 18:59 → P.MEDSURG 23:00 → SUATTDRO 23:00
PROVIDERS: ATTEND Internal Medicine
CPT/HCPCS: 51701; 70450; 71010; 71045; 80048; 80053; 81001; 82550; 82948; 83735; 83880; 83935; 84300; 84443; 84484; 85025; 85027; 85610; 85730; 87088; 87275; 87276; 87804; 93005; 94761; 95816; 96360; 99285; A9270; J1815; J3475; J7030; P9612; XXXXX

== ENCOUNTER 2019-03-19 09:34 | Inpatient (IN) ==
--- NOTE | 2019-03-19 09:53 | PROVIDER DOCUMENTATION ---
HPI-General Adult - General Stated Complaint: weakness Time Seen by Provider: 03/19/19 09:45 Source: other (CAREGIVER) Allergies/Adverse Reactions: Patient Allergies Allergy/AdvReac Type Severity Reaction Status Date / Time No Known Allergies Allergy Verified 03/19/19 09:51 Home Medications: Home Medication List Medication Instructions Recorded Confirmed Last Taken Type ATORVAstatin [Lipitor] 20 mg PO HS 01/18/16 03/19/19 03/18/19 19:00 History Atenolol 50 mg PO DAILY 01/18/16 03/19/19 03/19/19 07:00 History Memantine HCl [Namenda] 5 mg PO Q12H 01/18/16 01/01/19 03/19/19 07:00 History Pantoprazole Sodium 40 mg PO DAILY 01/18/16 03/19/19 03/19/19 07:00 History Quetiapine [Seroquel] 25 mg PO QAM 01/18/16 03/19/19 03/19/19 07:00 History Quetiapine [Seroquel] 200 mg PO BID 01/18/16 03/19/19 03/19/19 07:00 History Tamsulosin HCl 0.4 mg PO DAILY 09/25/16 03/19/19 03/19/19 07:00 History Carbidopa/Levodopa [Carbidopa-Levo 1 each PO 4XDAY 01/02/19 03/19/19 03/19/19 07:00 History 25-250 mg Odt] Lactulose 30 ml PO DAILY 01/02/19 03/19/19 03/19/19 07:00 History Acetaminophen [Tylenol] 2 tab PO Q4H PRN 03/19/19 03/19/19 Unknown History Aspirin 1 tab PO DAILY 03/19/19 03/19/19 03/19/19 07:00 History Calcium Carbonate [Oyster Shell 1 tab PO DAILY 03/19/19 03/19/19 03/19/19 07:00 History Calcium] Cholecalciferol (Vit D3) [Vitamin 1 tab PO DAILY 03/19/19 03/19/19 03/19/19 07:00 History D3] Cyanocobalamin (Vitamin B-12) 1,000 mg PO DAILY 03/19/19 03/19/19 03/19/19 07:00 History [Vitamin B12] Dextran 70/Hypromellose 2 drp BOTH EYES DAILY 03/19/19 03/19/19 Unknown History [Artificials Tears Drops] Donepezil HCl [Aricept] 1 tab PO HS 03/19/19 03/19/19 03/18/19 19:00 History Folic Acid 1 tab PO DAILY 03/19/19 03/19/19 03/19/19 07:00 History Ibuprofen 2 tab PO Q4H PRN 03/19/19 03/19/19 Unknown History Lacosamide [Vimpat] 1 tab PO Q12H 03/19/19 03/19/19 03/19/19 07:00 History Magnesium Oxide 1 tab PO Q12H 03/19/19 03/19/19 03/19/19 07:00 History Melatonin 1 tab PO QPM 03/19/19 03/19/19 03/18/19 18:00 History Metformin HCl 1 tab PO BID 03/19/19 03/19/19 03/19/19 07:00 History Nut.tx.gluc.intoler,Lac-Fr,Soy 237 ml PO Q12H 03/19/19 03/19/19 03/19/19 07:00 History [Glucerna] Ondansetron HCl 1 tab PO Q6H PRN 03/19/19 03/19/19 Unknown History Oxcarbazepine [Trileptal] 1 tab PO Q12H 03/19/19 03/19/19 03/19/19 07:00 History Zinc Oxide 20% Ointment TD TID 03/19/19 03/19/19 06:00 History - History of Present Illness -Gen Adult Nature of Presenting Problems: 74 YOM PRESENTING FROM [facility] FOR WEAKNESS, LOW BP AND C/O PAIN. CG REPORTS PT REPORTED CP ADN BP OF 77/44, EMS BP 80S/40S. ON EXAM HE REPORTS "PAIN IN HIS PRIVATES" HE IS CONFUSED AND UNABLE TO PROVIDE HX. CG REPORTS THIS IS HIS BASELINE MS Location of Pain/Injury: reports: genitalia Pain Radiation: reports: no radiation Quality of Pain: reports: other (UNABLE TO VERBALIZE) Onset/Duration: reports: unsure Timing: reports: still present Context/Activities at Onset: reports: none Modifying Factors: improves with: nothing Associated Symptoms: reports: denies symptoms Similar Symptoms Previously?: Yes Recently seen or treated by another doctor?: Yes (D/C FROM LAST WEEK FOR LOW MAG) Review of Systems - Adult - REVIEW OF SYSTEMS - ADULT ROS:: limited per condition Constitutional: reports: no symptoms reported. denies: see HPI, chills, fever, fatique, night sweats, weight gain, weight loss, other Eyes: reports: no symptoms reported. denies: see HPI, discharge, dry eyes, decreased vision, blurred vision, double vision, eye pain, redness, other Ears, Nose, Mouth & Throat: reports: no symptoms reported. denies: see HPI, ear discharge, ear pain, hearing loss, tinnitus, epistaxis, sinus problem, nose pain, loose teeth, mouth/dental pain, mouth swelling, hoarseness, throat pain, throat swelling, other Cardiovascular: reports: chest pain (REPORTED TO CAREGIVER IN FACILITY, DENIES CURRENTLY). denies: no symptoms reported, see HPI, edema, heart murmur, irregular heart rate, orthopnea, palpitations, poor circulation, PND, syncope, other Respiratory: reports: no symptoms reported. denies: see HPI, chronic cough, cough, dyspnea on exertion, excessive sputum production, hemoptysis, pleurisy, shortness of breath, wheezing, other Gastrointestinal: reports: no symptoms reported. denies: see HPI, abdominal pain, hematemesis, constipation, diarrhea, difficulty swallowing, frequent hear tburn, nausea, poor appetite, rectal bleeding, vomiting, other Genitourinary: reports: other (C/O PAIN UNRELATED TO URINATION). denies: no symptoms reported, see HPI, dysuria, discharge, frequency, flank pain, frequent UTI's, hematuria, hesitency, incontinence, urinary retention, urgency Musculoskeletal: reports: muscle weakness. denies: no symptoms reported, see HPI, bone pain, back pain, frequent leg cramps, joint pain, joint swelling, muscle aches, neck pain, other Integumentary: reports: no symptoms reported. denies: see HPI, hives, hair loss, itching, mole changes, nail changes, rash, skin sores/ulcer, skin th ickening, other Neurological: reports: other (CONFSUION). denies: no symptoms reported, see HPI, ataxia, dizziness/vertigo, headache/migraines, loss of balance, numbness, paresthesia, seizure, slurred speech, syncope, tremors Psychiatric: reports: no symptoms reported. denies: see HPI, anxiety, anti- depressant use, alcohol/drug dependence, depression, emotional problems, insomnia, panic attacks, suicidal thoughts, other Endocrine: reports: no symptoms reported. denies: see HPI, change in skin pigment, excessive sweating, goiter, cold intolerance, heat intolerance, increased hunger, increased thirst, polyuria, other Hematologic/Lymphatic: denies: no symptoms reported, see HPI, blood clots, easy bruising, low blood count, lymphedema, prolonged bleeding, swollen lymph nodes, transfusions, other Allergic/Immunologic: reports: no symptoms reported. denies: see HPI, allergic reactions, allergic rhinitis, asthma, eczema, food allergy, frequent infections, hay fever, hives, positive PPD, urticaria, other Past History - Adult - PAST MEDICAL HISTORY-ADULT Review of Records: reports: Nursing Assessment Review, Social history reviewed & non-contributory. Major Childhood Illnesses: reports: denies history Cardiovascular: reports: HTN Respiratory: reports: denies history Gastrointestinal: reports: denies history Obstetrical/Gynecological: reports: denies history Genitourinary: reports: denies history Musculoskeletal: reports: denies history Neurological: reports: cognitive dysfunction (mild intellectual disability), Parkinson's, Seizures/Epilepsy Psychiatric: reports: schizophrenia Endocrine/Immune: reports: Diabetes Other Conditions: reports: denies history - PRIOR SURGERIES/PROCEDURES Surgical/Procedure History: reports: reviewed, not pertinent - IMMUNIZATION STATUS Childhood Immunizations: See Nurse Assessment Flu Vaccine: See Nurse Assessment - FAMILY HISTORY Family History: reviewed, not pertinent Physical Exam-General - PHYSICAL EXAM-ADULT Initial Vital Signs Reviewed: Yes - CONSTITUTIONAL General Appearance: alert, no apparent distress, thin - EYES Eyes: PERRL/EOMI, pink conjunctivae - HEAD, EARS, NOSE, MOUTH & THROAT HENMT: normocephalic/atraumatic, moist mucous membranes, normal ENT inspection - NECK Neck: non-tender, full range of motion - RESPIRATORY Respiratory: chest non-tender, lungs clear, no respiratory distress - CARDIOVASCULAR Cardiovascular: normal peripheral pulses, regular rate, rhythm - GASTROINTESTINAL (ABDOMEN) Abdominal Exam: normal bowel sounds, non tender - LYMPHATIC Lymphatic: no adenopathy - MUSCULOSKELETAL Back Exam: normal inspection Extremity: normal range of motion - SKIN Integumentary: normal color, normal turgor - NEUROLOGIC Neurologic: grossly normal - PSYCHIATRIC Psych/Mental Status: disoriented x 3 Progress - PLAN OF CARE/RESULTS Progress/Plan/Lab Results: Orders Category Date Time Status FSBS [Finger Stick Blood Sugar (ED)] DIRECTED Care 03/19/19 09:46 Ordered CHEST-1 VIEW [RAD] Stat Exams 03/19/19 09:46 Ordered CBC WITH ELECTRONIC DIFF [HEME] Stat Lab 03/19/19 09:43 Uncollected COMPREHENSIVE METABOLIC PANEL [CHEM] Stat Lab 03/19/19 09:43 Uncollected PROTIME WITH INR [COAG] Stat Lab 03/19/19 09:46 Uncollected PTT [COAG] Stat Lab 03/19/19 09:46 Uncollected UA [URINALYSIS] [URINALYSIS] Stat Lab 03/19/19 09:46 Uncollected Generalized Adult Illness >60 Stat Oth 03/19/19 09:43 Ordered EKG [EKG] Stat Ther 03/19/19 09:43 Ordered Result Diagrams: 03/19/19 09:59 03/19/19 09:59 - REASSESSMENT Reassessment #1 Time Reassessed: 10:53 (HOSPITALIST PAGED FIR ADMISSION) Status: unchanged - XRAY 1 XRAY Study: Chest Impression: Normal XRAY Interpretation: No evidence of acute pathology by plain radiograph Departure - Departure Date of Disposition Decision: 03/19/19 Time of Disposition Decision: 11:10 DIAGNOSIS: UTI (urinary tract infection), Hypotension Disposition: ADMITTED INPATIENT 09 Certified Medical Emergency: Emergent Condition: Stable - Critical Care Note This patient required my direct & personal management of CC.: No Attestation - Physician/ KAREN Attestation Patient care was provided by Advanced Practice Provider:: Yes Advanced Practice Provider:: Anna Rowley Advanced Practice Provider documentation review:: The Mid-level provider documentation, treatment plan and medical decision making was reviewed by the physician who agrees with all treatment and medical decision making by the P. The physician spent face to face time with patient:: No Advanced Practice Provider documentation review:: Supervising physician onsite and consulted in the evaluation and care of this patient. The physician did not have a face to face encounter with the patient.
[2019-03-19 10:08] LABS: BASO# 0.05 X1000 (0.0-0.2); BASO% 0.6 % (0.0-0.8); EOS# 0.03 X1000 (0.0-0.7); EOS% 0.4 % (0.0-10.0); HEMATOCRIT 37.9 % (42.0-52.0); HEMOGLOBIN 13.3 g/dL (14.0-18.0); IMM GRAN# 0.02 X1000 (0.0-0.04); IMM GRAN% 0.2 % (0.0-0.5); LYMPH# 2.46 X1000 (1.2-3.4); LYMPH% 30.5 % (20.5-51.1); MCH 29.8 PG (27-31); MCHC 35.1 g/dL (33-37); MONO# 0.82 X1000 (0.11-0.59); MONO% 10.2 % (1.7-9.3); MPV 9.8 FL (7.4-10.4); NEUT# 4.69 X1000 (1.4-6.5); NEUT% 58.1 % (42.2-75.2); PLT 220 X1000 (130-400); RBC 4.46 XMIL (4.7-6.1); RDW 12.5 % (11.5-14.5); WBC 8.07 X1000 (4.8-10.8)
[2019-03-19 10:23] LABS: URINE SOURCE CATH
[2019-03-19 10:24] LABS: AGAP 12; ALBUMIN 4.1 g/dL (3.5-5.0); ALKALINE PHOSPHATASE 103 U/L (32-122); BUN 15 mg/dL (8-22); CALCIUM 8.8 mg/dL (8.8-10.2); CHLORIDE 95 mmol/L (98-107); COSMO 274; CREATININE 0.8 mg/dL (0.7-1.2); ESTIMATED GFR > 60; GLUCOSE 193 mg/dL (70-104); GOT 16 U/L (10-34); GPT < 5 U/L (10-44); POTASSIUM 4.7 mmol/L (3.5-5.1); SODIUM 134 mmol/L (136-145); TCO2 27 mmol/L (25-35); TOTAL PROTEIN 7.8 g/dL (6.3-8.3)
[2019-03-19 10:37] LABS: BILIRUBIN URINE NEGATIVE (NEGATIVE); BLOOD URINE 2+ (NEGATIVE); CLARITY SL. CLOUDY (CLEAR); COLOR YELLOW; GLUCOSE URINE NEGATIVE (NEGATIVE); KETONE URINE TRACE mg/dL (NEGATIVE); LEUKOCYTES URINE 2+ (NEGATIVE); NITRITE URINE NEGATIVE (NEGATIVE); PH URINE 6.5; PROTEIN URINE TRACE mg/dL (NEGATIVE); UROBILINOGEN URINE NORMAL
[2019-03-19 10:39] LABS: URINE BACTERIA 3+ /HFP; URINE CAST NONE SEEN /LPF; URINE CRYSTAL NONE SEEN /HPF; URINE EPITHELIAL CELLS <10 /HPF (<10); URINE RBC <10 /HPF (<10); URINE WBC TNTC /HPF (<10); URINE YEAST NONE SEEN /HPF
--- NOTE | 2019-03-19 10:39 | Diag Imaging Result Doc PS360 ---
EXAM: CHEST-1 VIEW INDICATION: CP TECHNIQUE: One view COMPARISON: 01/01/2019 FINDINGS: The lungs are grossly clear. There is no discrete pleural fluid collection or pneumothorax. The cardiomediastinal silhouette and central vasculature are grossly unremarkable. IMPRESSION: No evidence of acute pathology by plain radiograph. Electronically signed by Sony Plascencia 03/19/2019 10:37 AM
[2019-03-19 10:50] LABS: INR 0.93; PROTIME 12.9 Seconds (11.0-16.0)
--- NOTE | 2019-03-19 10:54 | ED EKG INTERP ---
This chart was entered by Josefina Toure Scribe, acting as scribe for Jose Gage MD. EKG Interpretation - EKG Time of EKG reading by physician:: 09:42 EKG Read and Signed by:: Jose Gage EKG Interpretation (*Must complete 3 of following elements*): Abnormal Rate: 69 Rhythm: NSR [place]: normal QRS: RBB, other (L anterior fascicular block; bifascicular block) RI Interval: normal ST Wave: normal Attestation - Physician/ KAREN Attestation Patient care was provided by Advanced Practice Provider:: Yes Advanced Practice Provider:: Anna Rowley Advanced Practice Provider documentation review:: The Mid-level provider documentation, treatment plan and medical decision making was reviewed by the physician who agrees with all treatment and medical decision making by the MLP. The physician spent face to face time with patient:: No Advanced Practice Provider documentation review:: Supervising physician onsite and consulted in the evaluation and care of this patient. The physician did not have a face to face encounter with the patient. This chart was documented by the indicated scribe, (Josefina Toure Scribe) and accurately reflects the services I performed and decisions made by me, Jose Gage MD, as attested by the provider's signature.
[2019-03-19] MEDS ORDERED: ROCEPHIN 2 GM in NS 50 ML IV ONE (10:59)
[2019-03-19 11:05] LABS: PTT 28.4 Seconds (22.3-41.8)
[2019-03-19] MEDS ORDERED: NS 0 ML ONE (11:23)
[2019-03-19] MEDS ORDERED: ROCEPHIN ONE (11:23)
--- NOTE | 2019-03-19 12:29 | HISTORY AND PHYSICAL ---
PRIMARY CARE PHYSICIAN: None. CHIEF COMPLAINT: Generalized weakness and increased confusion and pain with urination. HISTORY OF PRESENTING ILLNESS: This is a 74-year-old male who presents to [facility] via [facility] from a local [facility] stating he had increased weakness, complained of pain with urination, had some increased confusion. The caregiver also reported that he had a blood pressure there at the home of 77/44. EMS stated they got 80/40, but when he arrived to the emergency room, he was 106/57 and is currently 124/70. His urinalysis showed negative nitrites, 2+ white blood cells, 3+ bacteria, and the white blood cell count is normal at 8.07. So he will be admitted for further evaluation and treatment. PAST MEDICAL HISTORY: Diabetes, hypertension, seizure disorder, Parkinson's, autism, schizophrenia, and frequent UTIs. PAST SURGICAL HISTORY: Unknown. FAMILY HISTORY: Reviewed and noncontributory. SOCIAL HISTORY: Currently resides in a prison. Denies any alcohol, tobacco, or illicit drug use. ALLERGIES: He has no known drug allergies. HOME MEDICATIONS: He takes Tylenol 325 mg 2 tablets p.o. q.4 hours p.r.n., aspirin 81 mg p.o. daily, atenolol 50 mg p.o. daily, atorvastatin 20 mg p.o. at bedtime, calcium carbonate 500 mg p.o. daily, carbidopa/levodopa 25/250 four times daily, vitamin D3 one p.o. daily, vitamin B12 1000 mg p.o. daily, Artificial Tears 2 drops to both eyes daily, donepezil 5 mg p.o. at bedtime, folic acid 1 mg p.o. daily, ibuprofen 200 mg 2 p.o. q.4 hours p.r.n., Vimpat 150 mg p.o. q.12 hours, lactulose 30 mL p.o. daily, magnesium oxide 400 mg p.o. q.12, melatonin 5 mg p.o. q.p.m., and we need to verify his memantine dosage. He takes metformin 1000 mg p.o. b.i.d., ondansetron 4 mg p.o. q.6 hours p.r.n. will be held, Trileptal 300 mg p.o. q.12 hours, pantoprazole 40 mg p.o. daily, Seroquel 25 mg p.o. q.a.m. and 200 mg p.o. b.i.d., tamsulosin 0.4 mg p.o. daily, and zinc oxide will need to be verified. LABORATORY DATA: Showed a white blood cell count of 8.07, hemoglobin 13.3, hematocrit 37.9, platelets 220,000. PT/INR 12.9 and 0.93. Sodium 134, potassium 4.7, chloride 95, CO2 27, BUN of 15, creatinine 0.8, glucose 193. Troponin was negative. Urinalysis showed negative nitrites, 2+ white blood cells, 3+ bacteria. IMAGING: Chest x-ray showed no evidence of acute pathology by plain radiograph. EKG showed normal sinus rhythm at 69. REVIEW OF SYSTEMS: He denied any fever, chills, blurred vision, dizziness, chest pain, coughing, shortness of breath. He denied any abdominal pain. He did have pain with urination. Denied any nausea, vomiting, constipation or diarrhea. PHYSICAL EXAMINATION: VITAL SIGNS: On arrival, he had a temperature of 97.5 degrees, pulse 69, respirations 14, blood pressure of 106/57, saturating 100% on room air. Currently his blood pressure is 124/70. GENERAL: This is a 74-year-old male who is lying in the bed and answers questions appropriately. HEENT: Normocephalic, atraumatic. Normal ENT inspection. Oropharynx and nares are clear. EYES: Pupils are equal, round, reactive to light and accommodation. Extraocular movements are intact. NECK: Normal inspection, normal range of motion. LUNGS: Clear to auscultation bilaterally with equal lung expansion and chest wall movement. HEART: With regular rate and rhythm. No murmurs, rubs, or gallops. ABDOMEN: Soft, nontender, nondistended. Bowel sounds are present x4 quadrants. MUSCULOSKELETAL: He has 4/5 strength x4 extremities. NEUROLOGICAL: The cranial nerves 2-12 appear grossly intact. ASSESSMENT: 1. Urinary tract infection. 2. Hypotension prior to arrival per EMS, but since being in the emergency room, has had normal blood pressure. 3. Schizophrenia with mild intellectual disability, stable. 4. Diabetes type 2. PLAN: He is being admitted to the medical unit. Placed on Rocephin 1 gram IV q.24, normal saline at 75 mL an hour. Healthy heart diet. We will apply SCDs for DVT prophylaxis. Recheck a CBC, BMP in the a.m. Will place on pattern blood sugars with sliding scale insulin. He has an indwelling Rod catheter. Urine culture is pending. Further orders after being seen by attending. NACHO Anna, dictating for Dr. Dominguez. Dictated by NACHO Anna for Jakub Toro MD Addendum: Patient seen and examined by myself. Agree with NACHO note. It reflects my assessment and plan. Patient is being admitted to hospital for UTI and hypotension. He responded nicely to fluids so will continue with those and also broad spectrum IV antibiotics. Will monitor patient closely. Urine culture pending. cc: NACHO Anna MD [facility]
[2019-03-19] MEDS ORDERED: NUT TX GLUC INTOLER LAC FR SOY PO SCH (12:33)
[2019-03-19] MEDS ORDERED: MOTRIN PO PRN (12:33)
[2019-03-19] MEDS ORDERED: ZOFRAN IV PRN (12:33)
[2019-03-19] MEDS ORDERED: TYLENOL PO PRN ×2 (12:33)
[2019-03-19] MEDS: TRILEPTAL PO SCH ×2 (13:55→23:19)
[2019-03-19] MEDS: VIMPAT PO SCH ×2 (13:57→23:18)
[2019-03-19] MEDS: MAG-OX PO SCH (13:58)
[2019-03-19] MEDS: SINEMET 25/250 PO SCH ×3 (13:59→23:18)
--- NOTE | 2019-03-19 15:09 | EKG Report ---
Test Performed on : 03/19/2019 09:42:58 AM Test Reason : weakness Blood Pressure : / mmHG Vent. Rate : 069 BPM Atrial Rate : 069 BPM P-R Int : 178 ms QRS Dur : 144 ms QT Int : 442 ms P-R-T Axes : 041 -51 -09 degrees QTc Int : 473 ms Normal sinus rhythm. Right bundle branch block Left anterior fascicular block Bifascicular block Abnormal ECG When compared with ECG of 08-JAN-2019 13:35, No significant change was found Confirmed by Jose Gage MD ([id number]), editor index Ilsa Gonsales ([id number]) on 03/25/2019 1:54:49 PM
[2019-03-19] MEDS: GLUCOPHAGE PO SCH (16:30)
[2019-03-19] MEDS: NS 1,000 ML IV SCH (16:31)
[2019-03-19] MEDS: HUMALOG (PARKWAY) SUBQ SCH ×2 (18:45→23:38)
[2019-03-19] MEDS: LIPITOR PO SCH (23:18)
[2019-03-19] MEDS: SEROQUEL PO SCH (23:19)
[2019-03-19] MEDS: MELATONIN PO SCH (23:19)
[2019-03-19] MEDS: ARICEPT PO SCH (23:19)
[2019-03-20] MEDS: MAG-OX PO SCH ×2 (02:00→13:16)
[2019-03-20] MEDS: NS 1,000 ML IV SCH (06:44)
[2019-03-20] MEDS: HUMALOG (PARKWAY) SUBQ SCH ×3 (06:44→17:43)
[2019-03-20 07:42] LABS: BASO# 0.03 X1000 (0.0-0.2); BASO% 0.3 % (0.0-0.8); EOS# 0.05 X1000 (0.0-0.7); EOS% 0.5 % (0.0-10.0); HEMATOCRIT 35.7 % (42.0-52.0); HEMOGLOBIN 12.2 g/dL (14.0-18.0); IMM GRAN# 0.02 X1000 (0.0-0.04); IMM GRAN% 0.2 % (0.0-0.5); LYMPH# 2.64 X1000 (1.2-3.4); LYMPH% 24.3 % (20.5-51.1); MCHC 34.2 g/dL (33-37); MPV 10.3 FL (7.4-10.4); NEUT# 6.94 X1000 (1.4-6.5); NEUT% 63.7 % (42.2-75.2); PLT 215 X1000 (130-400); RDW 12.4 % (11.5-14.5); WBC 10.88 X1000 (4.8-10.8)
[2019-03-20 07:57] LABS: AGAP 11; BUN 18 mg/dL (8-22); CALCIUM 8.5 mg/dL (8.8-10.2); CHLORIDE 96 mmol/L (98-107); COSMO 268; CREATININE 0.6 mg/dL (0.7-1.2); ESTIMATED GFR > 60; GLUCOSE 89 mg/dL (70-104); POTASSIUM 4.4 mmol/L (3.5-5.1); SODIUM 133 mmol/L (136-145); TCO2 26 mmol/L (25-35)
[2019-03-20] MEDS: PROTONIX PO SCH (10:04)
[2019-03-20] MEDS: VIMPAT PO SCH ×2 (10:04→22:08)
[2019-03-20] MEDS: FOLIC ACID PO SCH (10:04)
[2019-03-20] MEDS: VITAMIN B-12 PO SCH (10:04)
[2019-03-20] MEDS: SEROQUEL PO SCH ×3 (10:05→22:08)
[2019-03-20] MEDS: VITAMIN D PO SCH (10:05)
[2019-03-20] MEDS: SINEMET 25/250 PO SCH ×4 (10:05→22:07)
[2019-03-20] MEDS: TENORMIN PO SCH (10:05)
[2019-03-20] MEDS: ASPIRIN PO SCH ×2 (10:05)
[2019-03-20] MEDS: NORVASC PO SCH ×2 (10:05→22:07)
[2019-03-20] MEDS: FLOMAX PO SCH (10:05)
[2019-03-20] MEDS: TEARISOL OPH SOLUTION BOTH EYES SCH (10:06)
[2019-03-20] MEDS: TUMS PO SCH (10:06)
[2019-03-20] MEDS: LACTULOSE PO SCH (10:06)
[2019-03-20] MEDS: TRILEPTAL PO SCH ×2 (10:06→22:07)
[2019-03-20] MEDS: GLUCOPHAGE PO SCH ×2 (10:07→16:18)
--- NOTE | 2019-03-20 10:21 | PROGRESS NOTE ---
DATE: 03/20/2019 SUBJECTIVE: The patient has baseline schizophrenia and not able to provide any information. No acute issues as per nursing staff overnight. OBJECTIVE: Vital Signs: Temperature 98.3 degrees, heart rate 81, respiratory rate 18, blood pressure 150/78, O2 saturation is 100% on room air. General Examination: This is a chronically ill-appearing, 74-year-old, male, lying in bed, in no acute distress. Cardiovascular Examination: S1 and S2 heard. No murmurs, gallops, or rubs. Regular rate and rhythm. Respiratory Examination: Clear bilaterally to auscultation. No work of breathing or using accessory muscles. Abdomen: Soft, nontender to palpation. Bowel sounds present. No organomegaly. Extremities: No clubbing, cyanosis, or edema. Peripheral pulses present in both legs. Neurological Examination: The patient is awake, of course, disoriented in place and time. Speech is not coherent. I think that is because of his baseline schizophrenia. Laboratory Data: White cell count 18.88, hemoglobin 12.2, hematocrit 35.7, platelets 215,000. Normal BMP. Urine culture and blood culture pending. ASSESSMENT AND PLAN: 1. Urinary tract infection. Patient is on antibiotics; in this case, ceftriaxone. He has received so far 2 mg intravenous every 24 hours at admission and we have continued with 1 g intravenous every 24 hours. No fever documented in the chart. We will continue with the same management. 2. Hypotension. I am not quite sure if this patient was septic because, beside blood pressure, the heart rate was not elevated. Now blood pressure is definitely much better with normal saline. He is receiving currently 75 mL per hour of normal saline but with current blood pressure, I think we are going to stop it and let this patient eat and drink normally. 3. Schizophrenia with mild intellectual disability, stable. 4. Diabetes mellitus type 2. We will continue with sliding scale insulin, Accu- Chek before meals and also at bedtime. 5. Disposition. I think if his labs continue to improve, and if we do have results of the urine culture, I think we can send this patient back to his [place] [facility] within the next 24 to 48 hours. cc: MD FAINA Vilchis
[2019-03-20] MEDS: ROCEPHIN 1 GM in NS 50 ML IV SCH (13:16)
[2019-03-20] MEDS: LIPITOR PO SCH (22:07)
[2019-03-20] MEDS: ARICEPT PO SCH (22:07)
[2019-03-20] MEDS: MELATONIN PO SCH (22:08)
[2019-03-21] MEDS: HUMALOG (PARKWAY) SUBQ SCH ×5 (01:24→22:30)
[2019-03-21] MEDS: MAG-OX PO SCH ×2 (01:25→12:53)
[2019-03-21 06:41] LABS: BASO# 0.06 X1000 (0.0-0.2); BASO% 0.6 % (0.0-0.8); EOS# 0.18 X1000 (0.0-0.7); EOS% 1.9 % (0.0-10.0); HEMATOCRIT 34.7 % (42.0-52.0); HEMOGLOBIN 11.9 g/dL (14.0-18.0); IMM GRAN# 0.01 X1000 (0.0-0.04); IMM GRAN% 0.1 % (0.0-0.5); LYMPH# 3.87 X1000 (1.2-3.4); LYMPH% 40.3 % (20.5-51.1); MCH 29.5 PG (27-31); MCHC 34.3 g/dL (33-37); MCV 86.1 FL (81-99); MONO# 1.04 X1000 (0.11-0.59); MONO% 10.8 % (1.7-9.3); NEUT# 4.44 X1000 (1.4-6.5); NEUT% 46.3 % (42.2-75.2); PLT 210 X1000 (130-400); RBC 4.03 XMIL (4.7-6.1); RDW 12.6 % (11.5-14.5)
[2019-03-21 06:52] LABS: AGAP 9; BUN 15 mg/dL (8-22); CALCIUM 8.4 mg/dL (8.8-10.2); CHLORIDE 95 mmol/L (98-107); COSMO 268; CREATININE 0.7 mg/dL (0.7-1.2); ESTIMATED GFR > 60; GLUCOSE 84 mg/dL (70-104); POTASSIUM 4.5 mmol/L (3.5-5.1); SODIUM 134 mmol/L (136-145); TCO2 30 mmol/L (25-35)
[2019-03-21] MEDS ORDERED: TYLENOL PO PRN (07:00)
[2019-03-21] MEDS: SEROQUEL PO SCH ×3 (10:01→22:27)
[2019-03-21] MEDS: TRILEPTAL PO SCH ×2 (10:01→22:25)
[2019-03-21] MEDS: SINEMET 25/250 PO SCH ×4 (10:01→22:26)
[2019-03-21] MEDS: TUMS PO SCH (10:01)
[2019-03-21] MEDS: ASPIRIN PO SCH (10:01)
[2019-03-21] MEDS: GLUCOPHAGE PO SCH ×2 (10:01→17:50)
[2019-03-21] MEDS: VITAMIN B-12 PO SCH (10:02)
[2019-03-21] MEDS: PROTONIX PO SCH (10:02)
[2019-03-21] MEDS: VITAMIN D PO SCH (10:02)
[2019-03-21] MEDS: NORVASC PO SCH ×2 (10:02→22:44)
[2019-03-21] MEDS: FOLIC ACID PO SCH (10:02)
[2019-03-21] MEDS: TENORMIN PO SCH (10:02)
[2019-03-21] MEDS: LACTULOSE PO SCH (10:02)
[2019-03-21] MEDS: FLOMAX PO SCH (10:12)
[2019-03-21] MEDS: VIMPAT PO SCH ×2 (12:53→22:28)
[2019-03-21] MEDS: TEARISOL OPH SOLUTION BOTH EYES SCH (12:54)
[2019-03-21] MEDS: ROCEPHIN 1 GM in NS 50 ML IV SCH (12:54)
[2019-03-21] MEDS: MELATONIN PO SCH (22:25)
[2019-03-21] MEDS: LIPITOR PO SCH (22:25)
[2019-03-21] MEDS: ARICEPT PO SCH (22:28)
--- NOTE | 2019-03-21 23:20 | PROGRESS NOTE ---
DATE: 03/21/2019 SUBJECTIVE: The patient has no new current complaints. She is talking in nonsensical words. OBJECTIVE: HEENT: Normocephalic. Neck: Supple. Cardiovascular: Regular rate. Chest: Clear. Abdomen: Soft. Extremities: Moves all extremities. ASSESSMENT: 1. Urinary tract infection growing gram-positive cocci, currently on Rocephin. 2. Hypertension. 3. Schizophrenia with intellectual disability. 4. Diabetes. PLAN: We will await results of urine culture. We will continue treatment. We will adjust antibiotics as needed. cc: Marques Gasca MD
[2019-03-22] MEDS: MAG-OX PO SCH ×2 (01:00→12:10)
[2019-03-22 06:23] LABS: BASO# 0.08 X1000 (0.0-0.2); EOS# 0.17 X1000 (0.0-0.7); EOS% 2.1 % (0.0-10.0); HEMATOCRIT 32.4 % (42.0-52.0); HEMOGLOBIN 11.2 g/dL (14.0-18.0); IMM GRAN# 0.01 X1000 (0.0-0.04); IMM GRAN% 0.1 % (0.0-0.5); LYMPH# 3.42 X1000 (1.2-3.4); LYMPH% 42.9 % (20.5-51.1); MCH 29.6 PG (27-31); MCHC 34.6 g/dL (33-37); MCV 85.7 FL (81-99); MONO# 0.85 X1000 (0.11-0.59); MONO% 10.7 % (1.7-9.3); MPV 9.8 FL (7.4-10.4); NEUT# 3.44 X1000 (1.4-6.5); NEUT% 43.2 % (42.2-75.2); PLT 214 X1000 (130-400); RBC 3.78 XMIL (4.7-6.1); RDW 12.6 % (11.5-14.5); WBC 7.97 X1000 (4.8-10.8)
[2019-03-22 06:27] LABS: AGAP 9; BUN 14 mg/dL (8-22); CALCIUM 8.2 mg/dL (8.8-10.2); CHLORIDE 95 mmol/L (98-107); COSMO 262; CREATININE 0.7 mg/dL (0.7-1.2); ESTIMATED GFR > 60; GLUCOSE 87 mg/dL (70-104); POTASSIUM 4.6 mmol/L (3.5-5.1); SODIUM 131 mmol/L (136-145); TCO2 28 mmol/L (25-35)
[2019-03-22] MEDS: HUMALOG (PARKWAY) SUBQ SCH ×4 (06:53→21:38)
[2019-03-22] MEDS: AMOXIL PO SCH ×2 (09:09→21:38)
[2019-03-22] MEDS: SEROQUEL PO SCH ×3 (09:10→21:37)
[2019-03-22] MEDS: SINEMET 25/250 PO SCH ×4 (09:10→21:38)
[2019-03-22] MEDS: VITAMIN B-12 PO SCH (09:11)
[2019-03-22] MEDS: FLOMAX PO SCH (09:11)
[2019-03-22] MEDS: GLUCOPHAGE PO SCH ×2 (09:12→16:06)
[2019-03-22] MEDS: PROTONIX PO SCH (09:13)
[2019-03-22] MEDS: NORVASC PO SCH ×2 (09:13→21:43)
[2019-03-22] MEDS: ASPIRIN PO SCH (09:13)
[2019-03-22] MEDS: TENORMIN PO SCH (09:13)
[2019-03-22] MEDS: VITAMIN D PO SCH (09:14)
[2019-03-22] MEDS: FOLIC ACID PO SCH (09:14)
[2019-03-22] MEDS: TUMS PO SCH (09:14)
[2019-03-22] MEDS: TRILEPTAL PO SCH ×2 (09:15→21:37)
[2019-03-22] MEDS: LACTULOSE PO SCH (09:15)
[2019-03-22] MEDS: TEARISOL OPH SOLUTION BOTH EYES SCH (09:17)
[2019-03-22] MEDS: VIMPAT PO SCH ×2 (09:28→21:37)
[2019-03-22] MEDS: LIPITOR PO SCH (21:37)
[2019-03-22] MEDS: ARICEPT PO SCH (21:38)
[2019-03-22] MEDS: MELATONIN PO SCH (21:38)
--- NOTE | 2019-03-22 23:12 | PROGRESS NOTE ---
DATE: 03/22/2019 SUBJECTIVE: The patient has no new complaints. Lying in bed comfortably. OBJECTIVE: Temperature 97.6, pulse 69, respiratory 18, BP 119/66. General: The patient is awake, alert. He is in no current respiratory distress. HEENT: Normocephalic. Neck supple. CV: Regular rate. Chest clear. Abdomen is soft. Extremities: Moves all extremities. ASSESSMENT: 1. Urinary tract infection with Enterococcus. We will change to amoxicillin. 2. Hypotension, resolved. 3. Hyponatremia. 4. Schizophrenia. 5. Mild intellectual impairment. 6. Diabetes type 2. PLAN: We will continue current care. Continue amoxicillin, and we will follow. cc: Marques Gasca MD
[2019-03-23] MEDS: MAG-OX PO SCH ×2 (01:30→12:13)
[2019-03-23] MEDS: HUMALOG (PARKWAY) SUBQ SCH ×4 (06:31→22:10)
[2019-03-23] MEDS: GLUCOPHAGE PO SCH ×2 (09:03→17:23)
[2019-03-23] MEDS: TENORMIN PO SCH (09:03)
[2019-03-23] MEDS: VITAMIN D PO SCH (09:04)
[2019-03-23] MEDS: SINEMET 25/250 PO SCH ×4 (09:04→22:21)
[2019-03-23] MEDS: TRILEPTAL PO SCH ×2 (09:05→22:13)
[2019-03-23] MEDS: FLOMAX PO SCH (09:05)
[2019-03-23] MEDS: SEROQUEL PO SCH ×3 (09:07→22:12)
[2019-03-23] MEDS: VITAMIN B-12 PO SCH (09:07)
[2019-03-23] MEDS: ASPIRIN PO SCH (09:08)
[2019-03-23] MEDS: NORVASC PO SCH ×2 (09:09→22:21)
[2019-03-23] MEDS: PROTONIX PO SCH (09:12)
[2019-03-23] MEDS: TUMS PO SCH (09:13)
[2019-03-23] MEDS: AMOXIL PO SCH ×2 (09:13→22:12)
[2019-03-23] MEDS: FOLIC ACID PO SCH (09:14)
[2019-03-23] MEDS: LACTULOSE PO SCH (09:15)
[2019-03-23] MEDS: TEARISOL OPH SOLUTION BOTH EYES SCH (09:20)
[2019-03-23] MEDS: VIMPAT PO SCH ×2 (09:25→22:12)
[2019-03-23] MEDS: ARICEPT PO SCH (22:12)
[2019-03-23] MEDS: LIPITOR PO SCH (22:12)
[2019-03-23] MEDS: MELATONIN PO SCH (22:13)
--- NOTE | 2019-03-23 23:37 | PROGRESS NOTE ---
DATE: 03/23/2019 SUBJECTIVE: Patient has no complaints. He is in no acute respiratory distress. PHYSICAL EXAMINATION: Vital signs: Reviewed. Temperature 97.6 degrees, pulse 69, respiratory 18, BP 119/66. General: Patient is lying in the bed. He is in no distress. He is confused, disoriented. HEENT: Normocephalic. Neck: Supple. Cardiovascular: Regular rate. No murmurs. Chest: Clear and unlabored. Abdomen: Soft, nondistended. ASSESSMENT: Urinary tract infection, Enterococcus resistant to tetracycline. cc: Marques Gasca MD
[2019-03-24] MEDS: MAG-OX PO SCH ×2 (01:00→12:38)
[2019-03-24] MEDS: HUMALOG (PARKWAY) SUBQ SCH ×4 (06:47→21:46)
[2019-03-24 06:53] LABS: HEMATOCRIT 32.3 % (42.0-52.0); HEMOGLOBIN 10.9 g/dL (14.0-18.0); MCH 28.8 PG (27-31); MCHC 33.7 g/dL (33-37); MCV 85.2 FL (81-99); MPV 10.1 FL (7.4-10.4); RBC 3.79 XMIL (4.7-6.1); RDW 12.3 % (11.5-14.5); WBC 7.79 X1000 (4.8-10.8)
[2019-03-24 07:33] LABS: AGAP 9; ALBUMIN 3.3 g/dL (3.5-5.0); ALKALINE PHOSPHATASE 88 U/L (32-122); BUN 17 mg/dL (8-22); CHLORIDE 89 mmol/L (98-107); COSMO 254; CREATININE 0.5 mg/dL (0.7-1.2); ESTIMATED GFR > 60; GLUCOSE 91 mg/dL (70-104); GOT 14 U/L (10-34); GPT 12 U/L (10-44); MAGNESIUM 1.3 mg/dL (1.5-2.7); POTASSIUM 4.6 mmol/L (3.5-5.1); SODIUM 126 mmol/L (136-145); TCO2 28 mmol/L (25-35); TOTAL BILIRUBIN < 0.15 mg/dL (0.20-1.00); TOTAL PROTEIN 6.2 g/dL (6.3-8.3)
[2019-03-24] MEDS: GLUCOPHAGE PO SCH ×2 (08:12→17:14)
[2019-03-24] MEDS: AMOXIL PO SCH ×2 (08:14→21:00)
[2019-03-24] MEDS: ASPIRIN PO SCH (08:15)
[2019-03-24] MEDS: FLOMAX PO SCH (08:16)
[2019-03-24] MEDS: FOLIC ACID PO SCH (08:17)
[2019-03-24] MEDS: LACTULOSE PO SCH (08:18)
[2019-03-24] MEDS: NORVASC PO SCH ×2 (08:21→20:59)
[2019-03-24] MEDS: PROTONIX PO SCH (08:22)
[2019-03-24] MEDS: SEROQUEL PO SCH ×3 (08:23→20:59)
[2019-03-24] MEDS: SINEMET 25/250 PO SCH ×4 (08:25→21:00)
[2019-03-24] MEDS: TEARISOL OPH SOLUTION BOTH EYES SCH (08:27)
[2019-03-24] MEDS: TRILEPTAL PO SCH ×2 (08:30→21:00)
[2019-03-24] MEDS: TENORMIN PO SCH (08:30)
[2019-03-24] MEDS: VIMPAT PO SCH ×2 (08:32→21:00)
[2019-03-24] MEDS: VITAMIN D PO SCH (08:34)
[2019-03-24] MEDS: VITAMIN B-12 PO SCH (08:35)
[2019-03-24] MEDS: TUMS PO SCH (08:37)
[2019-03-24] MEDS ORDERED: SODIUM CHLORIDE PO SCH (09:00)
[2019-03-24] MEDS: LIPITOR PO SCH (20:59)
[2019-03-24] MEDS: ARICEPT PO SCH (20:59)
[2019-03-24] MEDS: MELATONIN PO SCH (21:00)
[2019-03-25] MEDS: MAG-OX PO SCH ×3 (00:05→21:26)
--- NOTE | 2019-03-25 01:34 | PROGRESS NOTE ---
DATE: 03/24/2019 SUBJECTIVE: Patient has no complaints. PHYSICAL EXAMINATION: Vital Signs: Reviewed. Temperature 97.4 degrees, pulse 66, respiratory 18, BP 117/59. General: Patient is awake, currently in no distress, pleasant. He is calm. HEENT: Normocephalic. Neck: Supple. Cardiovascular: Regular rate. Chest: Clear and nonlabored. Abdomen: Soft, nondistended. Extremities: Moves all extremities. Neurologic: Unable to fully assess as patient is incapable of following commands. ASSESSMENT: 1. Enterococcus urinary tract infection resistant to tetracycline, currently on antibiotics. 2. Hypotension. 3. Schizophrenia. 4. Type 2 diabetes. PLAN: Continue antibiotics until 7 days. We will continue patient in the hospital until transfer arrangements can be made. cc: Marques Gasca MD
[2019-03-25 06:06] LABS: HEMATOCRIT 32.2 % (42.0-52.0); HEMOGLOBIN 10.9 g/dL (14.0-18.0); MCH 28.8 PG (27-31); MCHC 33.9 g/dL (33-37); RBC 3.79 XMIL (4.7-6.1); RDW 12.4 % (11.5-14.5); WBC 7.71 X1000 (4.8-10.8)
[2019-03-25 06:34] LABS: AGAP 8; ALBUMIN 3.3 g/dL (3.5-5.0); ALKALINE PHOSPHATASE 99 U/L (32-122); BUN 17 mg/dL (8-22); CALCIUM 7.8 mg/dL (8.8-10.2); CHLORIDE 91 mmol/L (98-107); COSMO 253; CREATININE 0.5 mg/dL (0.7-1.2); ESTIMATED GFR > 60; GLUCOSE 95 mg/dL (70-104); GOT 14 U/L (10-34); GPT 6 U/L (10-44); MAGNESIUM 1.4 mg/dL (1.5-2.7); POTASSIUM 4.6 mmol/L (3.5-5.1); SODIUM 125 mmol/L (136-145); TCO2 26 mmol/L (25-35); TOTAL BILIRUBIN < 0.15 mg/dL (0.20-1.00); TOTAL PROTEIN 6.3 g/dL (6.3-8.3)
[2019-03-25] MEDS: HUMALOG (PARKWAY) SUBQ SCH ×4 (06:43→23:12)
[2019-03-25] MEDS: VIMPAT PO SCH ×2 (10:43→21:25)
[2019-03-25] MEDS: SINEMET 25/250 PO SCH ×4 (10:43→21:24)
[2019-03-25] MEDS: LACTULOSE PO SCH (10:43)
[2019-03-25] MEDS: NORVASC PO SCH ×2 (10:44→21:25)
[2019-03-25] MEDS: ASPIRIN PO SCH (10:44)
[2019-03-25] MEDS: TUMS PO SCH (10:44)
[2019-03-25] MEDS: AMOXIL PO SCH ×2 (10:44→21:24)
[2019-03-25] MEDS: SEROQUEL PO SCH ×3 (10:44→21:25)
[2019-03-25] MEDS: FLOMAX PO SCH (10:44)
[2019-03-25] MEDS: GLUCOPHAGE PO SCH ×2 (10:44→17:40)
[2019-03-25] MEDS: TENORMIN PO SCH (10:45)
[2019-03-25] MEDS: PROTONIX PO SCH (10:45)
[2019-03-25] MEDS: VITAMIN B-12 PO SCH (10:45)
[2019-03-25] MEDS: SODIUM CHLORIDE PO SCH ×2 (10:45→21:24)
[2019-03-25] MEDS: TRILEPTAL PO SCH ×2 (10:45→21:25)
[2019-03-25] MEDS: FOLIC ACID PO SCH (10:45)
[2019-03-25] MEDS: TEARISOL OPH SOLUTION BOTH EYES SCH (10:46)
[2019-03-25] MEDS: VITAMIN D PO SCH (10:46)
[2019-03-25] MEDS ORDERED: NS 500 ML IV ONE (14:40)
[2019-03-25 16:10] LABS: URINE SOURCE CLEAN CATCH
[2019-03-25 16:11] LABS: BILIRUBIN URINE NEGATIVE (NEGATIVE); BLOOD URINE 1+ (NEGATIVE); CLARITY CLEAR (CLEAR); COLOR YELLOW; GLUCOSE URINE NEGATIVE (NEGATIVE); KETONE URINE TRACE mg/dL (NEGATIVE); LEUKOCYTES URINE NEGATIVE (NEGATIVE); NITRITE URINE NEGATIVE (NEGATIVE); PROTEIN URINE NEGATIVE (NEGATIVE); SP GRAVITY URINE 1.005; UROBILINOGEN URINE NORMAL
[2019-03-25 16:13] LABS: URINE EPITHELIAL CELLS <10 /HPF (<10); URINE WBC <10 /HPF (<10)
[2019-03-25 16:14] LABS: URINE BACTERIA 1+ /HFP; URINE CAST NONE SEEN /LPF; URINE CRYSTAL NONE SEEN /HPF; URINE YEAST NONE SEEN /HPF
--- NOTE | 2019-03-25 17:50 | PROGRESS NOTE ---
DATE: 03/25/2019 SUBJECTIVE: The patient has no complaints. PHYSICAL EXAMINATION: Vital Signs: Reviewed. Temperature 97.4 degrees, pulse 66, respiratory rate 18, blood pressure 117/59. General: The patient is awake, alert. He is in no distress. HEENT: Normocephalic. Neck: Supple. Cardiovascular: Regular rate. Chest: Clear. Abdomen: Soft. Extremities: Moves all extremities. ASSESSMENT: 1. Enterococcus urinary tract infection, resistant to tetracycline, currently on Rocephin. 2. Hypotension, resolved. 3. Schizophrenia. 4. Type 2 diabetes. PLAN: We will continue the patient in the hospital on antibiotics. We will recheck urine culture when negative. We will stop Rocephin and switch to oral antibiotics. We will continue to follow until the patient is able to transfer to long-term care. cc: Marques Gasca MD
[2019-03-25] MEDS: LIPITOR PO SCH (21:25)
[2019-03-25] MEDS: ARICEPT PO SCH (21:25)
[2019-03-25] MEDS: MELATONIN PO SCH (21:25)
[2019-03-26 05:58] LABS: HEMATOCRIT 32.2 % (42.0-52.0); HEMOGLOBIN 11.3 g/dL (14.0-18.0); MCH 29.8 PG (27-31); MCHC 35.1 g/dL (33-37); RBC 3.79 XMIL (4.7-6.1); RDW 12.4 % (11.5-14.5); WBC 9.82 X1000 (4.8-10.8)
[2019-03-26] MEDS: PROTONIX PO SCH (06:22)
[2019-03-26] MEDS: HUMALOG (PARKWAY) SUBQ SCH ×4 (06:24→21:09)
[2019-03-26 06:36] LABS: AGAP 9; ALBUMIN 3.2 g/dL (3.5-5.0); ALKALINE PHOSPHATASE 94 U/L (32-122); BUN 10 mg/dL (8-22); CALCIUM 8.1 mg/dL (8.8-10.2); CHLORIDE 93 mmol/L (98-107); COSMO 253; CREATININE 0.5 mg/dL (0.7-1.2); ESTIMATED GFR > 60; GLUCOSE 83 mg/dL (70-104); GOT 14 U/L (10-34); GPT 6 U/L (10-44); MAGNESIUM 1.5 mg/dL (1.5-2.7); POTASSIUM 4.5 mmol/L (3.5-5.1); SODIUM 127 mmol/L (136-145); TCO2 26 mmol/L (25-35); TOTAL PROTEIN 6.4 g/dL (6.3-8.3)
[2019-03-26] MEDS: FLOMAX PO SCH (09:31)
[2019-03-26] MEDS: LACTULOSE PO SCH (09:31)
[2019-03-26] MEDS: TRILEPTAL PO SCH ×2 (09:31→21:07)
[2019-03-26] MEDS: SEROQUEL PO SCH ×3 (09:31→21:08)
[2019-03-26] MEDS: VIMPAT PO SCH ×2 (09:31→21:08)
[2019-03-26] MEDS: VITAMIN B-12 PO SCH (09:31)
[2019-03-26] MEDS: TENORMIN PO SCH (09:32)
[2019-03-26] MEDS: FOLIC ACID PO SCH (09:32)
[2019-03-26] MEDS: TUMS PO SCH (09:32)
[2019-03-26] MEDS: NORVASC PO SCH ×2 (09:32→21:09)
[2019-03-26] MEDS: ASPIRIN PO SCH (09:32)
[2019-03-26] MEDS: VITAMIN D PO SCH (09:32)
[2019-03-26] MEDS: MAG-OX PO SCH ×2 (09:32→21:07)
[2019-03-26] MEDS: GLUCOPHAGE PO SCH ×2 (09:32→16:44)
[2019-03-26] MEDS: AMOXIL PO SCH ×2 (09:33→21:11)
[2019-03-26] MEDS: TEARISOL OPH SOLUTION BOTH EYES SCH (09:33)
[2019-03-26] MEDS: SINEMET 25/250 PO SCH ×4 (09:33→21:07)
[2019-03-26] MEDS: SODIUM CHLORIDE PO SCH ×2 (09:33→21:07)
--- NOTE | 2019-03-26 12:32 | PROGRESS NOTE ---
DATE: 03/26/2019 SUBJECTIVE: The patient with no complaints. Does have family in the room. He is much more awake, alert. OBJECTIVE: Vital Signs: Temperature 97.5, pulse 62, respiratory 18, BP 129/74. General: Patient is very pleasant to talk with, in no current respiratory distress. HEENT: Normocephalic. Neck: Supple. Cardiovascular: Regular rate. Chest: Clear. Abdomen: Soft. Extremities: Moves all extremities. ASSESSMENT: 1. Urinary tract infection, Enterococcus, currently on antibiotics. 2. Hypotension, resolved. 3. Schizophrenia with intellectual disability, stable. PLAN: We will continue patient in the hospital. Continue antibiotics, and will repeat urine culture. cc: Marques Gasca MD
[2019-03-26] MEDS: ARICEPT PO SCH (21:08)
[2019-03-26] MEDS: MELATONIN PO SCH (21:08)
[2019-03-26] MEDS: LIPITOR PO SCH (21:08)
[2019-03-27] MEDS: PROTONIX PO SCH (06:26)
[2019-03-27] MEDS: HUMALOG (PARKWAY) SUBQ SCH ×4 (06:26→21:04)
[2019-03-27] MEDS: SODIUM CHLORIDE PO SCH ×2 (09:46→21:03)
[2019-03-27] MEDS: SINEMET 25/250 PO SCH ×4 (09:46→21:04)
[2019-03-27] MEDS: LACTULOSE PO SCH (09:46)
[2019-03-27] MEDS: AMOXIL PO SCH ×2 (09:47→21:03)
[2019-03-27] MEDS: TUMS PO SCH (09:47)
[2019-03-27] MEDS: TRILEPTAL PO SCH ×2 (09:48→21:04)
[2019-03-27] MEDS: SEROQUEL PO SCH ×3 (09:48→21:03)
[2019-03-27] MEDS: FLOMAX PO SCH (09:48)
[2019-03-27] MEDS: MAG-OX PO SCH ×2 (09:48→21:03)
[2019-03-27] MEDS: TENORMIN PO SCH (09:48)
[2019-03-27] MEDS: VIMPAT PO SCH ×2 (09:48→21:03)
[2019-03-27] MEDS: VITAMIN B-12 PO SCH (09:48)
[2019-03-27] MEDS: VITAMIN D PO SCH (09:48)
[2019-03-27] MEDS: FOLIC ACID PO SCH (09:48)
[2019-03-27] MEDS: GLUCOPHAGE PO SCH ×2 (09:48→16:23)
[2019-03-27] MEDS: ASPIRIN PO SCH (09:48)
[2019-03-27] MEDS: NORVASC PO SCH ×2 (09:48→21:03)
[2019-03-27] MEDS: TEARISOL OPH SOLUTION BOTH EYES SCH (09:49)
--- NOTE | 2019-03-27 17:16 | PROGRESS NOTE ---
DATE: 03/27/2019 SUBJECTIVE: Patient has no complaints. OBJECTIVE: Vital Signs: Reviewed. Temp 97.3 degrees, pulse 62, respiratory rate 18, BP 108/48. General: Patient is awake. Currently in no distress. Lying in the bed. HEENT: Normocephalic. Neck: Supple. Cardiovascular: Regular rate. Chest: Clear. Abdomen: Soft, nondistended. ASSESSMENT: 1. Enterococcus urinary tract infection, currently on amoxicillin. 2. Hypotension, resolved. 3. Schizophrenia with mild intellectual disability. 4. Diabetes type 2. 5. Hypomagnesemia, stable. 6. Hyponatremia, stable. We will continue sodium chloride twice daily. PLAN: We will continue patient in the hospital. Expect that his sodium level is low secondary to his schizophrenic medications. We will continue sodium chloride to keep the level stable. The patient currently is stable for discharge. Hopefully, he can transition to long-term care soon. cc: Marques Gasca MD
[2019-03-27] MEDS: ARICEPT PO SCH (21:03)
[2019-03-27] MEDS: LIPITOR PO SCH (21:04)
[2019-03-27] MEDS: MELATONIN PO SCH (21:04)
[2019-03-28] MEDS: HUMALOG (PARKWAY) SUBQ SCH ×4 (06:04→23:09)
[2019-03-28] MEDS: PROTONIX PO SCH (06:22)
[2019-03-28] MEDS: GLUCOPHAGE PO SCH ×2 (08:33→16:48)
[2019-03-28] MEDS: AMOXIL PO SCH ×2 (08:34→20:48)
[2019-03-28] MEDS: ASPIRIN PO SCH (08:37)
[2019-03-28] MEDS: FLOMAX PO SCH (08:38)
[2019-03-28] MEDS: FOLIC ACID PO SCH (08:39)
[2019-03-28] MEDS: LACTULOSE PO SCH (08:40)
[2019-03-28] MEDS: MAG-OX PO SCH ×2 (08:49→20:48)
[2019-03-28] MEDS: NORVASC PO SCH ×2 (08:51→20:47)
[2019-03-28] MEDS: SEROQUEL PO SCH ×3 (08:52→20:47)
[2019-03-28] MEDS: SINEMET 25/250 PO SCH ×4 (08:54→20:47)
[2019-03-28] MEDS: SODIUM CHLORIDE PO SCH ×2 (08:56→20:48)
[2019-03-28] MEDS: TENORMIN PO SCH (08:57)
[2019-03-28] MEDS: TRILEPTAL PO SCH ×2 (08:58→20:47)
[2019-03-28] MEDS: VITAMIN B-12 PO SCH (09:00)
[2019-03-28] MEDS: VITAMIN D PO SCH (09:03)
[2019-03-28] MEDS: VIMPAT PO SCH ×2 (09:06→20:48)
[2019-03-28] MEDS: TUMS PO SCH (09:08)
[2019-03-28] MEDS: TEARISOL OPH SOLUTION BOTH EYES SCH (09:14)
--- NOTE | 2019-03-28 12:09 | PROGRESS NOTE ---
DATE: 03/28/2019 SUBJECTIVE: Patient has no complaint. He had incoherent speech. Caregiver who is at bedside reports that he is doing fine. OBJECTIVE: Vital Signs: Temperature 97.3, heart rate 66, respiratory rate 18, blood pressure 110/52, O2 saturation 98% on room air. General Examination: This is a chronically ill-appearing 74-year-old male, lying in bed, in no acute distress. HEENT: Head is normocephalic, atraumatic. Neck: No JVD noted. No carotid bruits. No lymphadenopathy. No thyromegaly. Cardiovascular: S1, S2 heard. No murmurs, gallops, or rubs. Regular rate and rhythm. Respiratory: Clear bilaterally to auscultation. No work of breathing or using accessory muscles. Abdomen: Soft, nontender to palpation. Bowel sounds present. No organomegaly. Extremities: No clubbing, cyanosis, or edema. Peripheral pulses present in both legs. Neurological: Patient is awake, but disoriented to place and time. Speech is incoherent; I think that is because of his baseline schizophrenia. LABORATORY DATA: None. ASSESSMENT AND PLAN: 1. Enterococcal urinary tract infection. Currently on amoxicillin. We have not checked labs for the last couple days, but previous CBC shows normal white cell count. 2. Hypotension, resolved. 3. Schizophrenia with mild intellectual disability. Aware. 4. Diabetes mellitus, type 2. Patient is on sliding scale insulin and Accu-Chek before meals and also at bedtime. 5. Hyponatremia, stable. Most like secondary to SCI[employer]IC[employer] drugs. We will continue to monitor. DISPOSITION: At this point, the patient is going to be evaluated by the [facility] the day after tomorrow for permanent placement in a fpc. At this point, patient is medically stable so, we will continue to monitor. cc: Jakub Toro MD
[2019-03-28] MEDS: NAMENDA PO SCH ×2 (12:45→23:09)
[2019-03-28] MEDS: MELATONIN PO SCH (20:47)
[2019-03-28] MEDS: LIPITOR PO SCH (20:48)
[2019-03-28] MEDS: ARICEPT PO SCH (20:48)
[2019-03-29] MEDS: PROTONIX PO SCH (06:14)
[2019-03-29] MEDS: HUMALOG (PARKWAY) SUBQ SCH ×4 (06:15→21:02)
[2019-03-29 10:15] LABS: AGAP 9; BUN 12 mg/dL (8-22); CALCIUM 8.4 mg/dL (8.8-10.2); CHLORIDE 92 mmol/L (98-107); COSMO 262; CREATININE 0.6 mg/dL (0.7-1.2); ESTIMATED GFR > 60; GLUCOSE 97 mg/dL (70-104); POTASSIUM 4.6 mmol/L (3.5-5.1); SODIUM 131 mmol/L (136-145); TCO2 30 mmol/L (25-35)
[2019-03-29] MEDS: SINEMET 25/250 PO SCH ×4 (10:18→21:02)
[2019-03-29] MEDS: AMOXIL PO SCH ×2 (10:19→21:02)
[2019-03-29] MEDS: VITAMIN D PO SCH (10:19)
[2019-03-29] MEDS: SODIUM CHLORIDE PO SCH ×2 (10:19→21:01)
[2019-03-29] MEDS: TUMS PO SCH (10:19)
[2019-03-29] MEDS: SEROQUEL PO SCH ×3 (10:19→21:02)
[2019-03-29] MEDS: TRILEPTAL PO SCH ×2 (10:19→21:02)
[2019-03-29] MEDS: VITAMIN B-12 PO SCH (10:20)
[2019-03-29] MEDS: NORVASC PO SCH ×2 (10:20→21:02)
[2019-03-29] MEDS: FOLIC ACID PO SCH (10:20)
[2019-03-29] MEDS: TENORMIN PO SCH (10:20)
[2019-03-29] MEDS: MAG-OX PO SCH ×2 (10:20→21:02)
[2019-03-29] MEDS: ASPIRIN PO SCH (10:21)
[2019-03-29] MEDS: GLUCOPHAGE PO SCH ×2 (10:21→18:00)
[2019-03-29] MEDS: FLOMAX PO SCH (10:21)
[2019-03-29] MEDS: LACTULOSE PO SCH (10:21)
[2019-03-29] MEDS: VIMPAT PO SCH ×2 (10:38→21:01)
[2019-03-29] MEDS: TEARISOL OPH SOLUTION BOTH EYES SCH (10:39)
[2019-03-29] MEDS: NAMENDA PO SCH ×2 (12:13→23:06)
--- NOTE | 2019-03-29 12:16 | PROGRESS NOTE ---
DATE: 03/29/2019 SUBJECTIVE: The patient has no complaints. Caregiver who is at bedside reports no complaints. OBJECTIVE: Vital signs: Temperature 97.6 degrees, heart rate 61, respiratory rate 16, blood pressure 140/67, O2 saturation 98% on room air. General: This is a chronically ill-appearing, 74- year-old male, lying in bed, in no acute distress. Cardiovascular: S1, S2 heard. No murmurs, gallops, or rubs. Regular rate and rhythm. Respiratory: Clear bilaterally to auscultation. No work of breathing or using accessory muscles. Abdomen: Soft, nontender to palpation. Bowel sounds present. No organomegaly. Extremities: No clubbing, cyanosis, or edema. Peripheral pulses present in both legs. Neurological: Patient is awake but disoriented in place and time. Speech is incoherent, I think because of her baseline schizophrenia. LABORATORY DATA: None. ASSESSMENT AND PLAN: 1. Enterococcal urinary tract infection. Patient is on normal saline. We will continue with same management. This infection I think is under control. We will continue with the same management. 2. Hypotension, resolved. 3. Schizophrenia with mild to moderate intellectual disability. Aware. 4. Diabetes mellitus type 2. Patient is on Accu-Chek before meals and also at bedtime and sliding scale insulin as well. 5. Hyponatremia, most likely secondary to INF[employer]AB[employer]IT[employer] drugs. Sodium is 131 today. The patient is on sodium tablets. Will continue with same management. 6. Disposition. At this point, patient is going to be evaluated by the state tomorrow on Thursday the for a permanent placement in a fpc. The patient is medically stable. We will continue to monitor. cc: Jakub Toro MD [facility]
[2019-03-29] MEDS: LIPITOR PO SCH (21:01)
[2019-03-29] MEDS: MELATONIN PO SCH (21:01)
[2019-03-29] MEDS: ARICEPT PO SCH (21:02)
[2019-03-30] MEDS: PROTONIX PO SCH (06:15)
[2019-03-30] MEDS: HUMALOG (PARKWAY) SUBQ SCH ×4 (06:33→20:21)
[2019-03-30 06:56] LABS: AGAP 13; BUN 16 mg/dL (8-22); CALCIUM 8.2 mg/dL (8.8-10.2); CHLORIDE 97 mmol/L (98-107); COSMO 273; CREATININE 0.7 mg/dL (0.7-1.2); ESTIMATED GFR > 60; GLUCOSE 100 mg/dL (70-104); POTASSIUM 4.7 mmol/L (3.5-5.1); SODIUM 136 mmol/L (136-145); TCO2 26 mmol/L (25-35)
[2019-03-30] MEDS: GLUCOPHAGE PO SCH ×2 (08:18→17:00)
[2019-03-30] MEDS: LACTULOSE PO SCH (08:18)
[2019-03-30] MEDS: SINEMET 25/250 PO SCH ×5 (08:19→20:22)
[2019-03-30] MEDS: SEROQUEL PO SCH ×3 (08:19→20:19)
[2019-03-30] MEDS: AMOXIL PO SCH ×2 (08:19→20:21)
[2019-03-30] MEDS: VITAMIN D PO SCH (08:19)
[2019-03-30] MEDS: SODIUM CHLORIDE PO SCH ×2 (08:19→20:22)
[2019-03-30] MEDS: FOLIC ACID PO SCH (08:20)
[2019-03-30] MEDS: VITAMIN B-12 PO SCH (08:20)
[2019-03-30] MEDS: TRILEPTAL PO SCH ×2 (08:21→20:21)
[2019-03-30] MEDS: TENORMIN PO SCH (08:21)
[2019-03-30] MEDS: FLOMAX PO SCH (08:21)
[2019-03-30] MEDS: NORVASC PO SCH (08:21)
[2019-03-30] MEDS: ASPIRIN PO SCH (08:21)
[2019-03-30] MEDS: TUMS PO SCH (08:22)
[2019-03-30] MEDS: MAG-OX PO SCH ×2 (08:22→20:21)
[2019-03-30] MEDS: TEARISOL OPH SOLUTION BOTH EYES SCH (08:31)
[2019-03-30] MEDS: VIMPAT PO SCH ×2 (08:31→20:20)
[2019-03-30] MEDS ORDERED: NS 1,000 ML IV ONE (09:48)
--- NOTE | 2019-03-30 11:36 | PROGRESS NOTE ---
DATE: 03/30/2019 SUBJECTIVE: Patient apparently went to the bathroom, and he had an episode where he felt dizzy. Blood pressure has been checked while he was on the toilet, and was found to be 70/50. OBJECTIVE: Vital Signs: Temperature 97.8 degrees, heart rate 82, respiratory rate 20, blood pressure 92/48, and O2 saturation 100% on room air. General: This is a 74-year-old male lying in bed in no acute distress. Cardiovascular: S1, S2 heard. No murmurs, gallops, or rubs. Regular rate and rhythm. Respiratory: Clear bilaterally to auscultation. No work of breathing or using accessory muscles. Abdomen: Soft, nontender to palpation. Bowel sounds present. No organomegaly. Extremities: No clubbing, cyanosis, or edema. Peripheral pulses present in both legs. Neurological: Patient is awake, but disoriented. I think it is because of her baseline schizophrenia. LABORATORY DATA: No labs from today except BMP which is normal with normal sodium. ASSESSMENT AND PLAN: 1. Enterococcal urinary tract infection. We will continue with amoxicillin. Today is day #9 of the treatment. We are going to continue this medication for complete a couple of weeks. 2. Hypotension. Patient had another episode of blood pressure that is low. At this point, we are going to stop amlodipine and hold atenolol, and see how he does. The patient is going to receive IV fluids as well. 3. Schizophrenia with mild to moderate intellectual disability. Aware. 4. Diabetes mellitus type 2. We will continue with sliding scale insulin and Accu-Chek before meals, and also at bedtime. 5. Hyponatremia. The patient is on sodium tablets, and sodium is finally back to normal. 6. Disposition: The patient is going to be evaluated by the state today for a permanent placement in a longterm. The patient is medically stable. We will continue to monitor. cc: Jakub Toro MD
[2019-03-30] MEDS: NAMENDA PO SCH (11:54)
[2019-03-30] MEDS: NS 1,000 ML IV SCH ×2 (11:55→20:19)
[2019-03-30] MEDS: LIPITOR PO SCH (20:20)
[2019-03-30] MEDS: ARICEPT PO SCH (20:22)
[2019-03-30] MEDS: MELATONIN PO SCH (20:22)
[2019-03-31] MEDS: NAMENDA PO SCH ×2 (00:01→13:16)
[2019-03-31] MEDS: NS 1,000 ML IV SCH ×3 (04:41→20:52)
[2019-03-31] MEDS: HUMALOG (PARKWAY) SUBQ SCH ×3 (06:03→17:34)
[2019-03-31] MEDS: PROTONIX PO SCH (06:24)
[2019-03-31 07:23] LABS: AGAP 6; BUN 12 mg/dL (8-22); CALCIUM 7.7 mg/dL (8.8-10.2); CHLORIDE 100 mmol/L (98-107); COSMO 265; CREATININE 0.4 mg/dL (0.7-1.2); ESTIMATED GFR > 60; GLUCOSE 79 mg/dL (70-104); POTASSIUM 4.5 mmol/L (3.5-5.1); SODIUM 133 mmol/L (136-145); TCO2 27 mmol/L (25-35)
[2019-03-31] MEDS: SEROQUEL PO SCH ×3 (10:17→20:54)
[2019-03-31] MEDS: GLUCOPHAGE PO SCH ×2 (10:17→17:32)
[2019-03-31] MEDS: FLOMAX PO SCH (10:17)
[2019-03-31] MEDS: TRILEPTAL PO SCH ×2 (10:18→20:53)
[2019-03-31] MEDS: ASPIRIN PO SCH (10:18)
[2019-03-31] MEDS: VITAMIN D PO SCH (10:18)
[2019-03-31] MEDS: VITAMIN B-12 PO SCH (10:18)
[2019-03-31] MEDS: FOLIC ACID PO SCH (10:18)
[2019-03-31] MEDS: MAG-OX PO SCH ×2 (10:18→20:54)
[2019-03-31] MEDS: AMOXIL PO SCH ×2 (10:18→20:54)
[2019-03-31] MEDS: TUMS PO SCH (10:19)
[2019-03-31] MEDS: SODIUM CHLORIDE PO SCH ×2 (10:19→20:53)
[2019-03-31] MEDS: LACTULOSE PO SCH (10:19)
[2019-03-31] MEDS: SINEMET 25/250 PO SCH ×4 (10:19→20:53)
--- NOTE | 2019-03-31 12:35 | PROGRESS NOTE ---
DATE: 03/31/2019 SUBJECTIVE: The patient reports feeling fine. No acute issues noted per nursing staff overnight. OBJECTIVE: Vital Signs: Temperature 97.6 degrees, heart rate 72, respiratory rate 20, blood pressure 133/65, O2 saturation 100% on room air. General Examination: This is a 74-year-old, male, lying in bed, in no acute distress. Cardiovascular Examination: S1 and S2 heard. No murmurs, gallops, or rubs. Regular rate and rhythm. Respiratory Examination: Clear bilaterally to auscultation. No work of breathing or using accessory muscles. Abdomen: Soft, nontender to palpation. Bowel sounds present. No organomegaly. Extremities: No clubbing, cyanosis, or edema. Peripheral pulses present in both legs. Neurological Examination: The patient is awake but disoriented. I think it is because of the baseline schizophrenia. Moves 4 extremities spontaneously. Laboratory Data: The BMP from today shows sodium 133 with normal creatinine. ASSESSMENT AND PLAN: 1. Enterococcal urinary tract infection. We will continue with amoxicillin. Today is day #10 with treatment. We are going to complete 2 weeks of antibiotics. 2. Hypotension. Patient had one episode with that problem yesterday. We had to stop one of his blood pressure medications plus intravenous fluids. His blood pressure is back to normal. 3. Schizophrenia with mild to moderate intellectual disability. Aware. 4. Diabetes mellitus type 2. We will continue with Accu-Chek before meals and also at bedtime, and sliding scale insulin as well. 5. Hyponatremia. Sodium is slightly low today. We will continue with sodium tablets. 6. Disposition. At this point, the patient is still due for evaluation by the [facility] for permanent placement in a prison. I hope that this evaluation can be performed next week. cc: Jakub Toro MD
[2019-03-31] MEDS: VIMPAT PO SCH ×2 (13:02→20:52)
[2019-03-31] MEDS: TEARISOL OPH SOLUTION BOTH EYES SCH (19:25)
[2019-03-31] MEDS: ARICEPT PO SCH (20:53)
[2019-03-31] MEDS: LIPITOR PO SCH (20:53)
[2019-03-31] MEDS: MELATONIN PO SCH (20:54)
[2019-04-01] MEDS: NS 1,000 ML IV SCH ×4 (03:00→17:13)
[2019-04-01] MEDS: NAMENDA PO SCH ×2 (03:00→12:11)
[2019-04-01] MEDS: HUMALOG (PARKWAY) SUBQ SCH ×8 (03:01→22:29)
[2019-04-01 07:13] LABS: AGAP 10; BUN 9 mg/dL (8-22); CALCIUM 8.1 mg/dL (8.8-10.2); CHLORIDE 101 mmol/L (98-107); COSMO 272; CREATININE 0.6 mg/dL (0.7-1.2); ESTIMATED GFR > 60; GLUCOSE 83 mg/dL (70-104); POTASSIUM 4.9 mmol/L (3.5-5.1); SODIUM 137 mmol/L (136-145); TCO2 26 mmol/L (25-35)
[2019-04-01] MEDS: PROTONIX PO SCH (07:33)
[2019-04-01] MEDS: VIMPAT PO SCH ×2 (10:02→22:23)
[2019-04-01] MEDS: MAG-OX PO SCH ×2 (10:02→22:23)
[2019-04-01] MEDS: LACTULOSE PO SCH (10:03)
[2019-04-01] MEDS: FOLIC ACID PO SCH (10:04)
[2019-04-01] MEDS: VITAMIN D PO SCH (10:04)
[2019-04-01] MEDS: AMOXIL PO SCH ×2 (10:04→22:22)
[2019-04-01] MEDS: ASPIRIN PO SCH (10:04)
[2019-04-01] MEDS: VITAMIN B-12 PO SCH (10:04)
[2019-04-01] MEDS: TRILEPTAL PO SCH ×2 (10:04→22:23)
[2019-04-01] MEDS: GLUCOPHAGE PO SCH ×2 (10:04→17:08)
[2019-04-01] MEDS: SEROQUEL PO SCH ×3 (10:04→22:23)
[2019-04-01] MEDS: SODIUM CHLORIDE PO SCH ×2 (10:05→22:22)
[2019-04-01] MEDS: FLOMAX PO SCH (10:05)
[2019-04-01] MEDS: TUMS PO SCH (10:05)
[2019-04-01] MEDS: SINEMET 25/250 PO SCH ×4 (10:05→22:22)
[2019-04-01] MEDS: TEARISOL OPH SOLUTION BOTH EYES SCH (10:13)
[2019-04-01] MEDS: TENORMIN PO SCH (10:19)
--- NOTE | 2019-04-01 12:08 | PROGRESS NOTE ---
DATE: 04/01/2019 SUBJECTIVE: The patient reports feeling fine. No acute issues noted as per nursing staff overnight. OBJECTIVE: Vital Signs: Temperature 97.6, heart rate 63, respiratory rate 18, blood pressure 125/66, O2 saturation 98% on room air. General: This is a 74-year-old male, lying in bed, in no acute distress. Cardiovascular: S1, S2 heard. No murmurs, gallops, or rubs. Regular rate and rhythm. Respiratory: Clear bilaterally to auscultation. No work of breathing or using accessory muscles. Abdomen: Soft, nontender to palpation in the epigastric area or any part of the abdomen. Bowel sounds present. No organomegaly. Extremities: No clubbing, cyanosis, or edema. Peripheral pulses present in both legs. Neurological: The patient is awake but disoriented, most likely related to his baseline schizophrenia, but moves all 4 extremities spontaneously. LABORATORY DATA: BMP shows normal sodium. ASSESSMENT AND PLAN: 1. Enterococcal urinary tract infection. We will continue with amoxicillin, today is day #11 of the treatment. Will complete 14 days of antibiotics. 2. Hypotension, resolved. 3. Schizophrenia with mild to moderate intellectual disability, aware. 4. Diabetes mellitus type 2. We will continue with Accu-Chek before meals and also at bedtime. 5. Hyponatremia. Sodium is back to normal. 6. Disposition. At this point, we are still awaiting for the evaluation by the [facility] for this patient in order to start looking for a permanent placement in a fci. cc: Jakub Toor MD
[2019-04-01] MEDS: LIPITOR PO SCH (22:22)
[2019-04-01] MEDS: MELATONIN PO SCH (22:22)
[2019-04-01] MEDS: ARICEPT PO SCH (22:23)
[2019-04-02] MEDS: NAMENDA PO SCH ×2 (00:01→12:47)
[2019-04-02] MEDS: NS 1,000 ML IV SCH ×3 (01:44→19:13)
[2019-04-02] MEDS: HUMALOG (PARKWAY) SUBQ SCH ×5 (06:20→21:38)
[2019-04-02] MEDS: PROTONIX PO SCH (06:20)
[2019-04-02] MEDS: TUMS PO SCH (08:06)
[2019-04-02] MEDS: TENORMIN PO SCH (08:06)
[2019-04-02] MEDS: FOLIC ACID PO SCH (08:06)
[2019-04-02] MEDS: VITAMIN B-12 PO SCH (08:06)
[2019-04-02] MEDS: GLUCOPHAGE PO SCH ×2 (08:06→16:52)
[2019-04-02] MEDS: FLOMAX PO SCH (08:06)
[2019-04-02] MEDS: ASPIRIN PO SCH (08:06)
[2019-04-02] MEDS: SEROQUEL PO SCH ×3 (08:06→21:34)
[2019-04-02] MEDS: LACTULOSE PO SCH (08:06)
[2019-04-02] MEDS: VITAMIN D PO SCH (08:07)
[2019-04-02] MEDS: TRILEPTAL PO SCH ×2 (08:07→21:33)
[2019-04-02] MEDS: MAG-OX PO SCH ×2 (08:07→21:33)
[2019-04-02] MEDS: SODIUM CHLORIDE PO SCH ×2 (08:07→21:33)
[2019-04-02] MEDS: TEARISOL OPH SOLUTION BOTH EYES SCH (08:07)
[2019-04-02] MEDS: VIMPAT PO SCH ×2 (08:07→21:33)
[2019-04-02] MEDS: AMOXIL PO SCH ×2 (08:08→21:34)
[2019-04-02] MEDS: SINEMET 25/250 PO SCH ×4 (08:08→21:34)
--- NOTE | 2019-04-02 13:31 | PROGRESS NOTE ---
DATE: 04/02/2019 SUBJECTIVE: Patient reports feeling fine. No acute issues noted as per nursing staff overnight. OBJECTIVE: Vital Signs: Temperature 97.5 degrees, heart rate 68, respiratory rate 18, blood pressure 164/75, O2 saturation 99% on room air. General: This is a 74-year-old male, lying in bed, in no acute distress. Cardiovascular: S1, S2 heard. No murmurs, gallops, or rubs. Regular rate and rhythm. Respiratory: Clear bilaterally to auscultation. No work of breathing or using accessory muscles. Abdomen: Soft, nontender to palpation. Bowel sounds present. No organomegaly. Extremities: No clubbing, cyanosis, or edema. Peripheral pulses present in all legs. Neurological: Patient is awake but disoriented which is most likely related to his baseline schizophrenia but moves 4 extremities spontaneously, walks normally as well. LABORATORY DATA: No labs from today but from yesterday BMP was completely normal. ASSESSMENT AND PLAN: 1. Enterococcal urinary tract infection. We will continue with the amoxicillin. Today is day #12 of treatment. Will complete 14 days of antibiotics. 2. Hypotension, resolved. 3. Schizophrenia with mild to moderate intellectual impairment. Aware. 4. Diabetes mellitus type 2. We will continue with Accu-Chek before meals and also at bedtime. 5. Hyponatremia. Sodium was back to normal on BMP from yesterday. 6. Disposition. At this point, we are still awaiting evaluation from the [facility] for this patient in order to start looking for a permanent placement in a long term. Hopefully that is going to happen next week or the week after. cc: Jakub Toro MD
[2019-04-02] MEDS: MELATONIN PO SCH (21:33)
[2019-04-02] MEDS: ARICEPT PO SCH (21:33)
[2019-04-02] MEDS: LIPITOR PO SCH (21:34)
[2019-04-03] MEDS: NAMENDA PO SCH ×2 (00:44→13:15)
[2019-04-03] MEDS: NS 1,000 ML IV SCH (04:02)
[2019-04-03] MEDS: HUMALOG (PARKWAY) SUBQ SCH ×4 (06:28→21:53)
[2019-04-03] MEDS: PROTONIX PO SCH (06:28)
[2019-04-03] MEDS: FOLIC ACID PO SCH (09:06)
[2019-04-03] MEDS: AMOXIL PO SCH ×2 (09:06→20:41)
[2019-04-03] MEDS: SODIUM CHLORIDE PO SCH ×2 (09:06→20:41)
[2019-04-03] MEDS: TEARISOL OPH SOLUTION BOTH EYES SCH (09:06)
[2019-04-03] MEDS: SINEMET 25/250 PO SCH ×4 (09:06→20:41)
[2019-04-03] MEDS: VIMPAT PO SCH ×2 (09:07→20:41)
[2019-04-03] MEDS: SEROQUEL PO SCH ×3 (09:07→20:41)
[2019-04-03] MEDS: MAG-OX PO SCH ×2 (09:08→20:41)
[2019-04-03] MEDS: VITAMIN D PO SCH (09:08)
[2019-04-03] MEDS: TRILEPTAL PO SCH ×2 (09:08→20:41)
[2019-04-03] MEDS: GLUCOPHAGE PO SCH ×2 (09:08→17:33)
[2019-04-03] MEDS: FLOMAX PO SCH (09:08)
[2019-04-03] MEDS: ASPIRIN PO SCH (09:08)
[2019-04-03] MEDS: LACTULOSE PO SCH (09:08)
[2019-04-03] MEDS: TENORMIN PO SCH (09:08)
[2019-04-03] MEDS: VITAMIN B-12 PO SCH (09:08)
[2019-04-03] MEDS: TUMS PO SCH (09:09)
--- NOTE | 2019-04-03 11:34 | PROGRESS NOTE ---
DATE: 04/03/2019 SUBJECTIVE: No acute events overnight. No new issues at this moment. OBJECTIVE: Vital Signs: Temperature 97.3 degrees, pulse 65, respiratory rate 20, blood pressure 152/59, oxygen saturation 97% on room air. HEENT: Head normocephalic. No trauma. PERRLA. Neck: Supple. No JVD. Central trachea. Chest: Clear to auscultation. No wheezing. No rales. Abdomen: Soft, nontender, nondistended. No hepatosplenomegaly. Extremities: No edema, no clubbing, no cyanosis. Neurological: This patient is awake. He is oriented to person, but he is confused, and I believe this is his baseline. He has schizophrenia. He moves all 4 extremities spontaneously. LABORATORY DATA: Glucose 91. ASSESSMENT AND PLAN: 1. Enterococcal urinary tract infection. Will continue with antibiotics. Today is day #13 of treatment, and we will try to complete 14 days of antibiotics. 2. Hypotension, resolved. 3. Schizophrenia with [id number] intellectual impairment. Aware. 4. Diabetes mellitus. Continue with the same management. 5. Hyponatremia. It looks like the sodium normalized on his last sodium level on 04/01/2019. 6. Disposition. It looks like at this point, we are still awaiting evaluation from the state for this patient in order to start looking for placement, hopefully permanent placement in a longterm. cc: Cassius Najera MD
[2019-04-03] MEDS: LIPITOR PO SCH (20:40)
[2019-04-03] MEDS: ARICEPT PO SCH (20:40)
[2019-04-03] MEDS: MELATONIN PO SCH (20:40)
[2019-04-04] MEDS: NAMENDA PO SCH ×2 (00:41→12:09)
[2019-04-04] MEDS: HUMALOG (PARKWAY) SUBQ SCH ×2 (06:12→12:07)
[2019-04-04] MEDS: PROTONIX PO SCH (06:12)
[2019-04-04] MEDS: SODIUM CHLORIDE PO SCH (08:15)
[2019-04-04] MEDS: VIMPAT PO SCH (08:15)
[2019-04-04] MEDS: ASPIRIN PO SCH (08:16)
[2019-04-04] MEDS: AMOXIL PO SCH (08:17)
[2019-04-04] MEDS: GLUCOPHAGE PO SCH (08:17)
[2019-04-04] MEDS: FOLIC ACID PO SCH (08:17)
[2019-04-04] MEDS: SINEMET 25/250 PO SCH ×2 (08:17→12:09)
[2019-04-04] MEDS: VITAMIN B-12 PO SCH (08:17)
[2019-04-04] MEDS: TENORMIN PO SCH (08:17)
[2019-04-04] MEDS: SEROQUEL PO SCH ×2 (08:17)
[2019-04-04] MEDS: TRILEPTAL PO SCH (08:17)
[2019-04-04] MEDS: VITAMIN D PO SCH (08:17)
[2019-04-04] MEDS: TUMS PO SCH (08:17)
[2019-04-04] MEDS: MAG-OX PO SCH (08:17)
[2019-04-04] MEDS: FLOMAX PO SCH (08:17)
[2019-04-04] MEDS: LACTULOSE PO SCH (09:33)
[2019-04-04] MEDS: TEARISOL OPH SOLUTION BOTH EYES SCH (09:35)
--- NOTE | 2019-04-04 10:05 | DISCHARGE SUMMARY ---
ADMISSION DATE: 03/21/2019 DISCHARGE DATE: 04/04/2019 CONSULTATIONS: None. PERTINENT PROCEDURES: 1. Initial chest x-ray, no evidence of acute pathology. 2. Initial EKG, normal sinus rhythm with a right bundle branch block, 69 beats per minute. DISCHARGE DIAGNOSES: 1. Enterococcal urinary tract infection. The patient has completed 14 days of IV antibiotics. 2. Hypotension, resolved. 3. Schizophrenia with [id number] intellectual impairment, aware. 4. Diabetes mellitus. Continue with home regimen. 5. Hyponatremia. Sodium has normalized. HOSPITAL COURSE: Briefly, Mr. Mohan is a 74-year-old male who presented to [facility] ER via EMS from a local [facility] stating he had increased weakness, complained of pain with urination and some increased confusion. Caregiver also reported that his blood pressures were low at 70 over 40s. In the ED, his urinalysis showed negative nitrates, 2+ WBCs, and 3+ bacteria with a normal white blood cell count of 8. He was admitted and treated for urinary tract infection with IV antibiotics. Today is his 14th day. He will not be discharged back on any p.o. antibiotics. His hypotension had normalized on his first day of admission. He did have some bouts of hyponatremia that have been resolved with IV hydration. His urinalysis grew out enterococcal. Antibiotics were changed accordingly. He has been evaluated by the [facility] and excepted to [facility] for long-term care. He has continued to have a stable hospital course and will be discharged to long-term care today. VITAL SIGNS: Temperature is 97.4 degrees, heart rate 65, respirations 16, blood pressure 156/87, O2 is 96% on room air. DISCHARGE DIET: Diabetic. DISCHARGE MEDICATIONS: 1. Aricept 5 mg p.o. at bedtime. 2. Terazol ophthalmic solution 0.2 mL both eyes daily. 3. Aspirin 81 mg p.o. daily. 4. Atenolol 50 mg p.o. daily. 5. Carbidopa levodopa 1 each p.o. 4 times a day. 6. Folic acid 1 mg p.o. daily. 7. Glucerna 237 mL p.o. q.12 hours. 8. Atenolol 50 mg p.o. daily. 9. Ibuprofen 400 mg p.o. q.4 hours p.r.n. 10. Lactulose 30 mL p.o. daily. 11. Lipitor 20 mg p.o. at bedtime. 12. Magnesium oxide 400 mg p.o. q.12 hours. 13. Melatonin 5 mg p.o. at bedtime. 14. Metformin 1000 mg tablet p.o. b.i.d. with meals. 15. Namenda 5 mg p.o. q.12 hours. 16. Zofran 4 mg tablet p.o. q.6 hours p.r.n. nausea and vomiting. 17. Calcium carbonate 500 mg p.o. daily. 18. Protonix 40 mg p.o. daily. 19. Seroquel 200 mg p.o. b.i.d. 20. Seroquel 25 mg p.o. in the morning. 21. Flomax 0.4 mg p.o. daily. 22. Trileptal 300 mg p.o. q.12 hours. 23. Tylenol 650 mg p.o. q.12 hours p.r.n. 24. Vimpat 150 mg p.o. q.12 hours. 25. Vitamin B12 1000 mg p.o. daily. 26. Vitamin D3 1000 units p.o. daily. 27. Zinc oxide ointment 30 g t.i.d. to buttock area. 28. Mag-Ox 400 mg p.o. b.i.d. FOLLOW-UP: Mr. Mohan is being discharged to [facility] for long-term care treatment. He has finished a full course of antibiotics for his urinary tract infection. He is to take all medications as prescribed. He can return to the ED or call 911 for any worsening of symptoms. Dictated by NACHO Morel for Marques Gasca MD cc: Marques Gasca MD
[2019-04-04 11:38] VITALS: BP 105/70
--- NOTE | 2019-04-05 06:27 | DISCHARGE SUMMARY ---
ADMISSION DATE: 03/21/2019 DISCHARGE DATE: 04/04/2019 ADDENDUM: Patient seen and examined by myself. Full note dictated and discussed with nurse practitioner. On discharge, patient is stable. He no longer needs antibiotic. His labs are normal. He is pleasant to talk with. PLAN: We will transition him to further long-term care. Please see full note. cc: Marques Gasca MD
== END 2019-04-04 13:14 | DRG 690 ==
LOC: P.ED 09:34 → P.MEDSURG 09:34 → SUATTDRO 11:59 → P.MEDSURG 20:26 → SUATTDRO 03-21 08:35
PROVIDERS: ATTEND Family Medicine
CPT/HCPCS: 36415; 51702; 71010; 71045; 80048; 80053; 81001; 82948; 83735; 83930; 83935; 84300; 84484; 85025; 85027; 85610; 85730; 87040; 87077; 87088; 87186; 93005; 96365; 99285; A9270; J0696; J1815; J7030; XXXXX